=== PATIENT | male | born 1940 | race Caucasian/White ===

== ENCOUNTER 2017-08-23 17:10 | Emergency (ER) | payer MEDICARE, MEDICAID ==
[~2017-08-23] VITALS: Ht 185.4 cm; Wt 95.9 kg
[~2017-08-23 17:10] MED LIST: AMIO200T57 PO; ASPI81TA52 PO; ATOR40TA PO; CARV3.12 PO; COU1T PO; FURO-150 PO; LISI2.5T89 PO; POTA10TA10 PO
[2017-08-23 17:15] VITALS: BP 142/64
[2017-08-23] MEDS ORDERED: phytonadione 10 MG/1 ML amp PO ONE (17:50)
== END 2017-08-23 18:18 | disposition home or self-care (01) ==
LOC: ER 17:11
DX: R79.1 Abnormal coagulation profile (principal); I25.10 Atherosclerotic heart disease of native coronary artery without angina pectoris; I25.2 Old myocardial infarction; Z79.01 Long term (current) use of anticoagulants; Z95.1 Presence of aortocoronary bypass graft; Z79.82 Long term (current) use of aspirin
CPT/HCPCS: 99282; J3430

== ENCOUNTER 2017-12-19 11:43 | Inpatient (IN) | payer MEDICARE, MEDICAID ==
[~2017-12-19] VITALS: Ht 180.3 cm; Wt 114.0 kg
[2017-12-19 12:05] LABS: BASOPHILS % (AUTO) 0.4 % (0-1); EOSINOPHILS # (AUTO) 0.1 X10'3 (0-0.9); EOSINOPHILS % (AUTO) 1.6 % (0-6); HEMATOCRIT 44.1 % (42.0-52.0); LYMPHOCYTES # (AUTO) 1.2 X10'3 (1.1-4.8); LYMPHOCYTES % (AUTO) 16.8 % (21-51); MEAN CORPUSCULAR HEMOGLOBIN 31.2 PG (27.0-31.0); MEAN CORPUSCULAR HGB CONC 33.9 % (33.0-36.5); MEAN PLATELET VOLUME 9.1 FL (7.4-10.4); MONOCYTES # (AUTO) 0.6 X10'3 (0-0.9); MONOCYTES % (AUTO) 8.4 % (2-12); NEUTROPHILS # (AUTO) 5.3 X10'3 (1.8-7.7); NEUTROPHILS % (AUTO) 72.8 % (42-75); PLATELET COUNT 132 X10'3 (140-440); RED CELL DISTRIBUTION WIDTH 14.3 % (11.5-14.5); WHITE BLOOD COUNT 7.3 X10'3 (4.5-11.0)
[2017-12-19 12:16] LABS: INR 2.5 INR; PARTIAL THROMBOPLASTIN TIME 34 SECONDS (22-32); PROTHROMBIN TIME 24.7 SECONDS (9.0-12.0)
[2017-12-19 12:20] LABS: ALANINE AMINOTRANSFERASE 16 U/L (12-78); ALBUMIN 3.2 G/DL (3.4-5.0); ALBUMIN/GLOBULIN RATIO 0.9 (1.1-1.5); ALKALINE PHOSPHATASE 79 IU/L (46-116); ANION GAP 9 (8-16); ASPARTATE AMINO TRANSFERASE 17 U/L (10-37); BILIRUBIN,TOTAL 0.9 MG/DL (0.1-1.0); BLOOD UREA NITROGEN 26 MG/DL (7-18); BUN/CREATININE RATIO 22.2 (5.4-32.0); CALCIUM 8.4 MG/DL (8.5-10.1); CHLORIDE 105 MMOL/L (99-107); CREATININE 1.17 MG/DL (0.60-1.10); GLUCOSE 110 MG/DL (70-104); SODIUM 138 MMOL/L (135-145); TOTAL CARBON DIOXIDE 24.1 MMOL/L (24-32); TOTAL PROTEIN 6.9 G/DL (6.4-8.2); eGFR 61 ML/MIN
[2017-12-19 12:21] LABS: POTASSIUM 4.7 MMOL/L (3.5-5.1)
[2017-12-19] MEDS ORDERED: SPIR25TA5 PO (13:12)
[2017-12-19] MEDS ORDERED: PRIM50TA PO (13:12)
[2017-12-19] MEDS ORDERED: CARV6.253 PO (13:12)
[2017-12-19] MEDS ORDERED: HYDROcodone/acetaminophen 10/325mg tab PO PRN (14:25)
[2017-12-19] MEDS ORDERED: mag hydrox/Alum hydrox/simeth 30ml oral suspension PO PRN (14:25)
[2017-12-19] MEDS ORDERED: magnesium hydroxide 30ml (MOM) UD suspension PO PRN (14:25)
[2017-12-19] MEDS ORDERED: potassium Cl 40MEQ/NS 500ml 500 ML IV PRN ×2 (14:25)
[2017-12-19] MEDS ORDERED: HYDROcodone/acetaminophen 5mg/325mg tablet PO PRN (14:25)
[2017-12-19] MEDS ORDERED: magnesium 4gm in 100ml NS 100 ML IV PRN (14:25)
[2017-12-19] MEDS ORDERED: ondansetron/PF 4mg/2ml inj IV PRN (14:25)
[2017-12-19] MEDS ORDERED: potassium Cl 20 mEq SR tablet PO PRN ×2 (14:25)
[2017-12-19] MEDS ORDERED: magnesium Cl slow-release 64mg tablet PO PRN (14:25)
[2017-12-19] MEDS ORDERED: magnesium/D5W IVPB 50 ML IV PRN (14:25)
[2017-12-19] MEDS ORDERED: morphine 4 MG/ML inj SYRINge IV PRN ×2 (14:25)
[2017-12-19] MEDS ORDERED: acetaminophen 325mg tablet PO PRN (14:25)
[2017-12-19] MEDS ORDERED: regadenoson 0.4mg/5ml syringe IV ONE (14:30)
[2017-12-19] MEDS ORDERED: nitroGLYCERIN 0.4mg SUBLingual tab SL PRN ×2 (14:30→14:35)
[2017-12-19] MEDS ORDERED: metoprolol tartrate 1mg/ml inj IV PRN (14:30)
[2017-12-19] MEDS ORDERED: albuterol 2.5 MG/3 ML nebule NEB PRN (14:30)
[2017-12-19] MEDS ORDERED: CAFFEINE CITRATE 60 MG/3 ML injection vial IV PRN (14:30)
[2017-12-19 15:30] VITALS: BP 105/65
[2017-12-19 19:00] VITALS: BP 121/73
[2017-12-19] MEDS: furosemide 20 MG/2 ML vial IV SCH (19:26)
[2017-12-19] MEDS: docusate sod 100mg capsule PO SCH (20:52)
[2017-12-19] MEDS: primidone 50mg tablet PO SCH (20:53)
[2017-12-19] MEDS: warfarin 4mg tablet PO SCH (20:53)
[2017-12-19] MEDS: carVEDilol 3.125mg tablet PO SCH (20:54)
[2017-12-19 23:00] VITALS: BP 99/65
[2017-12-19] MEDS: Melatonin 3mg tablet PO PRN (23:35)
[2017-12-20] VITALS (13 sets, daily range): BP systolic 97–126; BP diastolic 58–98
[2017-12-20 06:09] LABS: INR 2.8 INR; PROTHROMBIN TIME 27.9 SECONDS (9.0-12.0)
[2017-12-20 06:16] LABS: ALANINE AMINOTRANSFERASE 17 U/L (12-78); ALBUMIN 3.1 G/DL (3.4-5.0); ALBUMIN/GLOBULIN RATIO 0.9 (1.1-1.5); ALKALINE PHOSPHATASE 76 IU/L (46-116); ANION GAP 9 (8-16); ASPARTATE AMINO TRANSFERASE 14 U/L (10-37); BILIRUBIN,TOTAL 0.7 MG/DL (0.1-1.0); BLOOD UREA NITROGEN 25 MG/DL (7-18); BUN/CREATININE RATIO 22.1 (5.4-32.0); CALCIUM 8.3 MG/DL (8.5-10.1); CHLORIDE 105 MMOL/L (99-107); CHOL/HDL RATIO 2.9 (0.00-4.99); CHOLESTEROL 99 MG/DL (0-200); CREATININE 1.13 MG/DL (0.60-1.10); GLUCOSE 103 MG/DL (70-104); HDL CHOLESTEROL 34 MG/DL (35-60); LDL CHOLESTEROL 55 MG/DL (50-100); MAGNESIUM 1.6 MG/DL (1.5-2.4); SODIUM 140 MMOL/L (135-145); TOTAL CARBON DIOXIDE 26.1 MMOL/L (24-32); TOTAL PROTEIN 6.5 G/DL (6.4-8.2); TRIGLYCERIDES 68 MG/DL (20-135); eGFR 63 ML/MIN
[2017-12-20] MEDS: K and/or MAG REPLACEMENT MC SCH (08:00)
[2017-12-20] MEDS: carVEDilol 3.125mg tablet PO SCH ×2 (08:00→19:34)
[2017-12-20] MEDS: lisinopril 2.5mg tablet PO SCH (08:00)
[2017-12-20] MEDS: furosemide 20 MG/2 ML vial IV SCH (08:01)
[2017-12-20] MEDS: atorvastatin 20mg tablet PO SCH (08:02)
[2017-12-20] MEDS: primidone 50mg tablet PO SCH ×3 (08:02→19:34)
[2017-12-20] MEDS: docusate sod 100mg capsule PO SCH ×2 (08:03→19:34)
[2017-12-20] MEDS: aspirin 81mg tablet.DR PO SCH (08:03)
[2017-12-20] MEDS: spironolactone 25 MG tablet PO SCH (08:05)
[2017-12-20] MEDS ORDERED: CAFFEINE CITRATE 60 MG/3 ML injection vial IV ONE (10:02)
[2017-12-20] MEDS ORDERED: regadenoson 0.4mg/5ml syringe IV ONE (10:02)
[2017-12-20] MEDS ORDERED: FURO-150 PO (14:32)
[2017-12-20] MEDS ORDERED: NITR0.4T51 SL (14:32)
[2017-12-20] MEDS: warfarin 4mg tablet PO SCH (19:34)
[2017-12-20] MEDS: Melatonin 3mg tablet PO PRN (23:20)
[2017-12-21 02:00] VITALS: BP 112/70
[2017-12-21 06:00] VITALS: BP 100/71
[2017-12-21 06:02] LABS: INR 3.2 INR; PROTHROMBIN TIME 31.5 SECONDS (9.0-12.0)
[2017-12-21 06:09] LABS: ALANINE AMINOTRANSFERASE 22 U/L (12-78); ALBUMIN 3.1 G/DL (3.4-5.0); ALBUMIN/GLOBULIN RATIO 0.9 (1.1-1.5); ALKALINE PHOSPHATASE 79 IU/L (46-116); ANION GAP 9 (8-16); ASPARTATE AMINO TRANSFERASE 14 U/L (10-37); BLOOD UREA NITROGEN 21 MG/DL (7-18); BUN/CREATININE RATIO 18.6 (5.4-32.0); CALCIUM 8.6 MG/DL (8.5-10.1); CHLORIDE 104 MMOL/L (99-107); CREATININE 1.13 MG/DL (0.60-1.10); GLUCOSE 96 MG/DL (70-104); MAGNESIUM 1.7 MG/DL (1.5-2.4); POTASSIUM 4.1 MMOL/L (3.5-5.1); SODIUM 140 MMOL/L (135-145); TOTAL CARBON DIOXIDE 26.7 MMOL/L (24-32); TOTAL PROTEIN 6.5 G/DL (6.4-8.2); eGFR 63 ML/MIN
[2017-12-21] MEDS: K and/or MAG REPLACEMENT MC SCH (08:00)
[2017-12-21] MEDS ORDERED: furosemide 20MG tablet PO SCH (08:00)
[2017-12-21] MEDS: docusate sod 100mg capsule PO SCH (08:20)
[2017-12-21] MEDS: spironolactone 25 MG tablet PO SCH (08:20)
[2017-12-21] MEDS: carVEDilol 3.125mg tablet PO SCH (08:20)
[2017-12-21] MEDS: aspirin 81mg tablet.DR PO SCH (08:20)
[2017-12-21] MEDS: atorvastatin 20mg tablet PO SCH (08:20)
[2017-12-21] MEDS: primidone 50mg tablet PO SCH (08:20)
[2017-12-21] MEDS: lisinopril 2.5mg tablet PO SCH (08:21)
== END 2017-12-21 11:20 | disposition home or self-care (01) | DRG 302 ==
LOC: ER 11:43 → ED HOLD 13:34 → EDBEDREQ 14:38 → PCU 3S 15:15
PROVIDERS: ADMIT Internal Medicine; ATTEND Internal Medicine
PROC: 4A02XM4 Measurement of Cardiac Total Activity, External Approach (ICD-10-PCS; principal; 2017-12-20)
PROC: 3E073KZ Introduction of Other Diagnostic Substance into Coronary Artery, Percutaneous Approach (ICD-10-PCS; 2017-12-20)
DX: I25.119 Atherosclerotic heart disease of native coronary artery with unspecified angina pectoris (principal); I50.23 Acute on chronic systolic (congestive) heart failure; I48.91 Unspecified atrial fibrillation; E78.5 Hyperlipidemia, unspecified; G20 Parkinson's disease; M19.90 Unspecified osteoarthritis, unspecified site; I25.5 Ischemic cardiomyopathy; Z96.642 Presence of left artificial hip joint; I25.2 Old myocardial infarction; Z95.1 Presence of aortocoronary bypass graft; Z95.810 Presence of automatic (implantable) cardiac defibrillator; Z79.899 Other long term (current) drug therapy; Z79.01 Long term (current) use of anticoagulants; Z79.82 Long term (current) use of aspirin
CPT/HCPCS: 36415; 71045; 78452; 80053; 80061; 83735; 84484; 85025; 85610; 85730; 87070; 93005; 93017; 93306; 97116; 97161; 99285; A9500; J1940

== ENCOUNTER 2017-12-24 09:11 | Emergency (ER) | payer MEDICARE, MEDICAID ==
[~2017-12-24] VITALS: Ht 180.3 cm; Wt 102.3 kg
[~2017-12-24 09:11] MED LIST changes: -AMIO200T57 PO; -CARV3.12 PO; +CARV6.253 PO; -FURO-150 PO; +NITR0.4T51 SL; -POTA10TA10 PO; +PRIM50TA PO; +SPIR25TA5 PO
[2017-12-24] MEDS ORDERED: aspirin 81mg tab.chew PO ONE (09:20)
[2017-12-24 09:58] LABS: BASOPHILS % (AUTO) 0.2 % (0-1); EOSINOPHILS # (AUTO) 0.2 X10'3 (0-0.9); EOSINOPHILS % (AUTO) 2.4 % (0-6); HEMATOCRIT 41.9 % (42.0-52.0); HEMOGLOBIN 14.1 g/dl (14.0-17.9); LYMPHOCYTES # (AUTO) 0.9 X10'3 (1.1-4.8); LYMPHOCYTES % (AUTO) 11.6 % (21-51); MEAN CORPUSCULAR HEMOGLOBIN 31.1 PG (27.0-31.0); MEAN CORPUSCULAR HGB CONC 33.7 % (33.0-36.5); MEAN CORPUSCULAR VOLUME 92.2 FL (78-98); MEAN PLATELET VOLUME 9.5 FL (7.4-10.4); MONOCYTES # (AUTO) 0.7 X10'3 (0-0.9); MONOCYTES % (AUTO) 8.7 % (2-12); NEUTROPHILS # (AUTO) 6.1 X10'3 (1.8-7.7); NEUTROPHILS % (AUTO) 77.1 % (42-75); PLATELET COUNT 135 X10'3 (140-440); RED BLOOD COUNT 4.55 X10'6 (4.70-6.10); RED CELL DISTRIBUTION WIDTH 14.5 % (11.5-14.5)
[2017-12-24 10:08] LABS: INR 1.9 INR; PARTIAL THROMBOPLASTIN TIME 33 SECONDS (22-32); PROTHROMBIN TIME 19.6 SECONDS (9.0-12.0)
[2017-12-24 10:15] LABS: ALANINE AMINOTRANSFERASE 18 U/L (12-78); ALBUMIN 3.2 G/DL (3.4-5.0); ALBUMIN/GLOBULIN RATIO 0.9 (1.1-1.5); ALKALINE PHOSPHATASE 85 IU/L (46-116); ANION GAP 6 (8-16); ASPARTATE AMINO TRANSFERASE 15 U/L (10-37); BILIRUBIN,TOTAL 0.6 MG/DL (0.1-1.0); BLOOD UREA NITROGEN 19 MG/DL (7-18); BUN/CREATININE RATIO 15.2 (5.4-32.0); CALCIUM 8.9 MG/DL (8.5-10.1); CHLORIDE 104 MMOL/L (99-107); CREATININE 1.25 MG/DL (0.60-1.10); GLUCOSE 110 MG/DL (70-104); POTASSIUM 5.2 MMOL/L (3.5-5.1); SODIUM 137 MMOL/L (135-145); TOTAL CARBON DIOXIDE 26.9 MMOL/L (24-32); TOTAL PROTEIN 6.8 G/DL (6.4-8.2); eGFR 56 ML/MIN
[2017-12-24 10:22] LABS: MAGNESIUM 1.8 MG/DL (1.5-2.4)
[2017-12-24] MEDS ORDERED: sodium polystyrene sulfonate 15gm/60ml oral suspension PO ONE (10:50)
[2017-12-24 10:55] VITALS: BP 116/80
== END 2017-12-24 15:24 | disposition home or self-care (01) ==
LOC: ER 09:11
DX: R07.9 Chest pain, unspecified (principal); E87.5 Hyperkalemia; I25.10 Atherosclerotic heart disease of native coronary artery without angina pectoris; E78.00 Pure hypercholesterolemia, unspecified; I10 Essential (primary) hypertension; I48.91 Unspecified atrial fibrillation; I25.2 Old myocardial infarction; Z95.0 Presence of cardiac pacemaker; Z95.1 Presence of aortocoronary bypass graft; Z79.82 Long term (current) use of aspirin; Z79.01 Long term (current) use of anticoagulants; Z79.899 Other long term (current) drug therapy
CPT/HCPCS: 36415; 71045; 80053; 83735; 83880; 84484; 85025; 85610; 85730; 93005; 99285

== ENCOUNTER 2018-01-01 12:44 | Emergency (ER) | payer MEDICARE, MEDICAID ==
[~2018-01-01] VITALS: Ht 180.3 cm; Wt 111.8 kg
[2018-01-01 13:06] LABS: BASOPHILS % (AUTO) 0.4 % (0-1); EOSINOPHILS # (AUTO) 0.1 X10'3 (0-0.9); EOSINOPHILS % (AUTO) 1.1 % (0-6); HEMATOCRIT 44.1 % (42.0-52.0); HEMOGLOBIN 14.8 g/dl (14.0-17.9); LYMPHOCYTES % (AUTO) 12.7 % (21-51); MEAN CORPUSCULAR HEMOGLOBIN 30.7 PG (27.0-31.0); MEAN CORPUSCULAR HGB CONC 33.4 % (33.0-36.5); MEAN PLATELET VOLUME 8.7 FL (7.4-10.4); MONOCYTES # (AUTO) 0.7 X10'3 (0-0.9); MONOCYTES % (AUTO) 8.9 % (2-12); NEUTROPHILS # (AUTO) 6.1 X10'3 (1.8-7.7); NEUTROPHILS % (AUTO) 76.9 % (42-75); PLATELET COUNT 149 X10'3 (140-440); RED CELL DISTRIBUTION WIDTH 14.3 % (11.5-14.5); WHITE BLOOD COUNT 7.9 X10'3 (4.5-11.0)
[2018-01-01 13:21] LABS: ALANINE AMINOTRANSFERASE 18 U/L (12-78); ALBUMIN 3.4 G/DL (3.4-5.0); ALBUMIN/GLOBULIN RATIO 0.9 (1.1-1.5); ALKALINE PHOSPHATASE 81 IU/L (46-116); ANION GAP 9 (8-16); ASPARTATE AMINO TRANSFERASE 14 U/L (10-37); BILIRUBIN,TOTAL 0.7 MG/DL (0.1-1.0); BLOOD UREA NITROGEN 23 MG/DL (7-18); BUN/CREATININE RATIO 20.2 (5.4-32.0); CALCIUM 8.8 MG/DL (8.5-10.1); CHLORIDE 105 MMOL/L (99-107); CREATININE 1.14 MG/DL (0.60-1.10); GLUCOSE 106 MG/DL (70-104); POTASSIUM 4.3 MMOL/L (3.5-5.1); SODIUM 141 MMOL/L (135-145); TOTAL CARBON DIOXIDE 27.4 MMOL/L (24-32); TOTAL PROTEIN 7.1 G/DL (6.4-8.2); eGFR 63 ML/MIN
[2018-01-01 13:57] LABS: INR 2.5 INR; PROTHROMBIN TIME 24.8 SECONDS (9.0-12.0)
[2018-01-01 14:06] LABS: PARTIAL THROMBOPLASTIN TIME 34 SECONDS (22-32)
[2018-01-01] MEDS ORDERED: furosemide 10 MG/1 ML 10ml inj IV ONE (14:40)
[2018-01-01] MEDS ORDERED: furosemide 20MG tablet PO ONE (15:05)
[2018-01-01 15:16] VITALS: BP 133/93
== END 2018-01-01 15:18 | disposition home or self-care (01) ==
LOC: ER 12:45
DX: I11.0 Hypertensive heart disease with heart failure (principal); I50.22 Chronic systolic (congestive) heart failure; R06.03 Acute respiratory distress; I25.10 Atherosclerotic heart disease of native coronary artery without angina pectoris; I48.91 Unspecified atrial fibrillation; E78.00 Pure hypercholesterolemia, unspecified; I25.2 Old myocardial infarction; Z95.0 Presence of cardiac pacemaker; Z95.1 Presence of aortocoronary bypass graft; Z79.01 Long term (current) use of anticoagulants; Z79.82 Long term (current) use of aspirin; Z79.899 Other long term (current) drug therapy
CPT/HCPCS: 36415; 71045; 80053; 83880; 84484; 85025; 85610; 85730; 93005; 99285

== ENCOUNTER 2018-03-12 20:54 | Emergency (ER) | payer MEDICARE, MEDICAID ==
[~2018-03-12] VITALS: Ht 180.3 cm; Wt 99.0 kg
[2018-03-12 21:03] VITALS: BP 125/80
[2018-03-12 22:28] LABS: CLARITY,URINE SLIGHTLY CLOUDY (Clear); COLOR,URINE YELLOW (Yellow); GLUCOSE, URINE NEGATIVE (Neg); KETONES,URINE NEGATIVE (Neg); LEUKOCYTE ESTERASE ,URINE SMALL (Neg); NITRITES, URINE POSITIVE (Neg); OCCULT BLOOD,URINE TRACE-INTACT (Neg); PROTEIN,URINE 30 mg/dl (Neg); UROBILINOGEN,URINE 0.2 E.U/dL (0.2-1.0)
[2018-03-12 22:42] LABS: UA COLLECTION TYPE CLN CATCH MIDSTREAM
[2018-03-12 22:44] LABS: BACTERIA,URINE 3+ /HPF (Neg); WBC,URINE 50-100 /HPF (0-4)
[2018-03-12] MEDS ORDERED: CIPR-259 PO (22:44)
[2018-03-12 22:45] LABS: AMORPHOUS URATES 2+; SQUAMOUS EPITHELIAL CELL,UR FEW /LPF (FEW); WBC CLUMPS,URINE FEW /HPF (NEGATIVE)
== END 2018-03-12 23:15 | disposition home or self-care (01) ==
LOC: ER 20:54
DX: N30.00 Acute cystitis without hematuria (principal); I48.91 Unspecified atrial fibrillation; I25.10 Atherosclerotic heart disease of native coronary artery without angina pectoris; E78.00 Pure hypercholesterolemia, unspecified; I10 Essential (primary) hypertension; I25.2 Old myocardial infarction; Z95.1 Presence of aortocoronary bypass graft; Z95.0 Presence of cardiac pacemaker; Z79.82 Long term (current) use of aspirin; Z79.2 Long term (current) use of antibiotics; Z79.899 Other long term (current) drug therapy
CPT/HCPCS: 81001; 87088; 99284

== ENCOUNTER 2018-04-03 20:16 | Inpatient (IN) | payer MEDICARE, MEDICAID ==
[~2018-04-03] VITALS: Ht 177.8 cm; Wt 102.1 kg
[2018-04-03 20:48] LABS: BASOPHILS # (AUTO) 0.1 X10'3 (0-0.2); BASOPHILS % (AUTO) 1.9 % (0-1); EOSINOPHILS # (AUTO) 0.1 X10'3 (0-0.9); EOSINOPHILS % (AUTO) 0.9 % (0-6); HEMATOCRIT 44.9 % (42.0-52.0); HEMOGLOBIN 14.7 g/dl (14.0-17.9); LYMPHOCYTES # (AUTO) 0.8 X10'3 (1.1-4.8); LYMPHOCYTES % (AUTO) 11.4 % (21-51); MEAN CORPUSCULAR HEMOGLOBIN 30.4 PG (27.0-31.0); MEAN CORPUSCULAR HGB CONC 32.7 % (33.0-36.5); MEAN PLATELET VOLUME 9.7 FL (7.4-10.4); MONOCYTES # (AUTO) 0.6 X10'3 (0-0.9); MONOCYTES % (AUTO) 8.3 % (2-12); NEUTROPHILS # (AUTO) 5.6 X10'3 (1.8-7.7); NEUTROPHILS % (AUTO) 77.5 % (42-75); PLATELET COUNT 143 X10'3 (140-440); RED BLOOD COUNT 4.83 X10'6 (4.70-6.10); RED CELL DISTRIBUTION WIDTH 16.3 % (11.5-14.5); WHITE BLOOD COUNT 7.2 X10'3 (4.5-11.0)
[2018-04-03 20:56] LABS: ALANINE AMINOTRANSFERASE 40 U/L (12-78); ALBUMIN 3.2 G/DL (3.4-5.0); ALBUMIN/GLOBULIN RATIO 0.9 (1.1-1.5); ALKALINE PHOSPHATASE 95 IU/L (46-116); ANION GAP 10 (8-16); ASPARTATE AMINO TRANSFERASE 31 U/L (10-37); BILIRUBIN,TOTAL 0.9 MG/DL (0.1-1.0); BLOOD UREA NITROGEN 27 MG/DL (7-18); BUN/CREATININE RATIO 20.3 (5.4-32.0); CALCIUM 8.4 MG/DL (8.5-10.1); CHLORIDE 103 MMOL/L (99-107); CREATININE 1.33 MG/DL (0.60-1.10); GLUCOSE 114 MG/DL (70-104); POTASSIUM 4.9 MMOL/L (3.5-5.1); SODIUM 138 MMOL/L (135-145); TOTAL PROTEIN 6.7 G/DL (6.4-8.2); eGFR 52 ML/MIN
[2018-04-03 21:15] LABS: ANISOCYTOSIS 1+; PLATELET ESTIMATE NORMAL
[2018-04-03 21:16] LABS: BURR CELLS FEW; ELLIPTOCYTES FEW; INR 3.7 INR; PARTIAL THROMBOPLASTIN TIME 34 SECONDS (22-32); POLYCHROMASIA FEW
[2018-04-03 21:17] LABS: PROTHROMBIN TIME 36.5 SECONDS (9.0-12.0)
[2018-04-03 21:53] LABS: D-DIMER 5.49 MG/L FEU (0-0.50)
[2018-04-03] MEDS ORDERED: iohexol 300mg/ml 100ml inj. ONE (22:11)
[2018-04-03] MEDS ORDERED: normal saline 1000ml 1,000 ML IV ONE (22:15)
[2018-04-03] MEDS ORDERED: furosemide 10 MG/1 ML 10ml inj IV ONE ×2 (22:15→22:50)
[2018-04-03] MEDS ORDERED: ondansetron/PF 4mg/2ml inj IV PRN (23:55)
[2018-04-03] MEDS ORDERED: mag hydrox/Alum hydrox/simeth 30ml oral suspension PO PRN (23:55)
[2018-04-03] MEDS ORDERED: magnesium hydroxide 30ml (MOM) UD suspension PO PRN (23:55)
[2018-04-03] MEDS ORDERED: acetaminophen 325mg tablet PO PRN (23:55)
[2018-04-04] VITALS (7 sets, daily range): BP systolic 91–119; BP diastolic 58–71
[2018-04-04] MEDS: tamsulosin 0.4mg capsule PO SCH ×3 (02:18→21:39)
[2018-04-04 05:34] LABS: BASOPHILS % (AUTO) 0.6 % (0-1); EOSINOPHILS % (AUTO) 0.5 % (0-6); HEMATOCRIT 41.9 % (42.0-52.0); HEMOGLOBIN 13.9 g/dl (14.0-17.9); LYMPHOCYTES # (AUTO) 0.9 X10'3 (1.1-4.8); LYMPHOCYTES % (AUTO) 11.1 % (21-51); MEAN CORPUSCULAR HEMOGLOBIN 30.5 PG (27.0-31.0); MEAN CORPUSCULAR HGB CONC 33.2 % (33.0-36.5); MEAN CORPUSCULAR VOLUME 91.8 FL (78-98); MEAN PLATELET VOLUME 10.1 FL (7.4-10.4); MONOCYTES # (AUTO) 0.7 X10'3 (0-0.9); MONOCYTES % (AUTO) 8.3 % (2-12); NEUTROPHILS # (AUTO) 6.5 X10'3 (1.8-7.7); NEUTROPHILS % (AUTO) 79.5 % (42-75); PLATELET COUNT 125 X10'3 (140-440); RED BLOOD COUNT 4.57 X10'6 (4.70-6.10); RED CELL DISTRIBUTION WIDTH 16.1 % (11.5-14.5); WHITE BLOOD COUNT 8.1 X10'3 (4.5-11.0)
[2018-04-04 05:40] LABS: INR 3.2 INR; PROTHROMBIN TIME 32.1 SECONDS (9.0-12.0)
[2018-04-04 05:50] LABS: ALANINE AMINOTRANSFERASE 36 U/L (12-78); ALBUMIN/GLOBULIN RATIO 0.9 (1.1-1.5); ALKALINE PHOSPHATASE 80 IU/L (46-116); ANION GAP 9 (8-16); ASPARTATE AMINO TRANSFERASE 31 U/L (10-37); BILIRUBIN,TOTAL 1.1 MG/DL (0.1-1.0); BLOOD UREA NITROGEN 26 MG/DL (7-18); BUN/CREATININE RATIO 19.1 (5.4-32.0); CALCIUM 8.6 MG/DL (8.5-10.1); CHLORIDE 103 MMOL/L (99-107); CREATININE 1.36 MG/DL (0.60-1.10); GLUCOSE 86 MG/DL (70-104); POTASSIUM 4.3 MMOL/L (3.5-5.1); SODIUM 139 MMOL/L (135-145); TOTAL CARBON DIOXIDE 27.1 MMOL/L (24-32); TOTAL PROTEIN 6.3 G/DL (6.4-8.2); eGFR 51 ML/MIN
[2018-04-04] MEDS: lisinopril 2.5mg tablet PO SCH (08:00)
[2018-04-04] MEDS: aspirin 81mg tablet.DR PO SCH (08:01)
[2018-04-04] MEDS: atorvastatin 20mg tablet PO SCH (08:01)
[2018-04-04] MEDS: carvedilol 6.25mg tablet PO SCH ×2 (08:01→20:00)
[2018-04-04] MEDS: furosemide 20 MG/2 ML vial IV SCH (20:00)
[2018-04-04] MEDS ORDERED: warfarin 4mg tablet PO ONE (21:00)
[2018-04-04] MEDS ORDERED: warfarin 1mg tablet PO SCH (21:00)
[2018-04-04] MEDS: diatr meglu/diatrizoate 30ml oral sol.-(3 dose) bottle PO SCH (21:38)
[2018-04-04] MEDS: enoxaparin 100mg/ml syringe SUBCUT SCH (22:25)
[2018-04-05] VITALS (9 sets, daily range): BP systolic 79–121; BP diastolic 46–80
[2018-04-05] MEDS ORDERED: normal saline 1000ml 1,000 ML IV SCH (00:35)
[2018-04-05] MEDS ORDERED: normal saline 1000ml 1,000 ML IV ONE (00:50)
[2018-04-05 04:25] LABS: BASOPHILS # (AUTO) 0.1 X10'3 (0-0.2); BASOPHILS % (AUTO) 1.4 % (0-1); EOSINOPHILS # (AUTO) 0.1 X10'3 (0-0.9); EOSINOPHILS % (AUTO) 1.5 % (0-6); HEMATOCRIT 40.8 % (42.0-52.0); HEMOGLOBIN 13.4 g/dl (14.0-17.9); LYMPHOCYTES # (AUTO) 0.9 X10'3 (1.1-4.8); LYMPHOCYTES % (AUTO) 13.9 % (21-51); MEAN CORPUSCULAR HEMOGLOBIN 30.3 PG (27.0-31.0); MEAN CORPUSCULAR HGB CONC 32.9 % (33.0-36.5); MEAN CORPUSCULAR VOLUME 91.9 FL (78-98); MEAN PLATELET VOLUME 9.5 FL (7.4-10.4); MONOCYTES # (AUTO) 0.5 X10'3 (0-0.9); MONOCYTES % (AUTO) 7.9 % (2-12); NEUTROPHILS # (AUTO) 4.6 X10'3 (1.8-7.7); NEUTROPHILS % (AUTO) 75.3 % (42-75); PLATELET COUNT 116 X10'3 (140-440); RED BLOOD COUNT 4.44 X10'6 (4.70-6.10); RED CELL DISTRIBUTION WIDTH 15.9 % (11.5-14.5); WHITE BLOOD COUNT 6.2 X10'3 (4.5-11.0)
[2018-04-05 04:38] LABS: ALANINE AMINOTRANSFERASE 36 U/L (12-78); ALBUMIN 2.8 G/DL (3.4-5.0); ALBUMIN/GLOBULIN RATIO 0.8 (1.1-1.5); ALKALINE PHOSPHATASE 91 IU/L (46-116); ANION GAP 10 (8-16); ASPARTATE AMINO TRANSFERASE 27 U/L (10-37); BLOOD UREA NITROGEN 26 MG/DL (7-18); CALCIUM 8.2 MG/DL (8.5-10.1); CHLORIDE 103 MMOL/L (99-107); CREATININE 1.18 MG/DL (0.60-1.10); GLUCOSE 112 MG/DL (70-104); POTASSIUM 3.8 MMOL/L (3.5-5.1); SODIUM 138 MMOL/L (135-145); TOTAL CARBON DIOXIDE 25.1 MMOL/L (24-32); TOTAL PROTEIN 6.1 G/DL (6.4-8.2); eGFR 60 ML/MIN
[2018-04-05 04:43] LABS: PROTHROMBIN TIME 29.7 SECONDS (9.0-12.0)
[2018-04-05] MEDS: aspirin 81mg tablet.DR PO SCH (07:09)
[2018-04-05] MEDS: tamsulosin 0.4mg capsule PO SCH ×2 (07:09→20:11)
[2018-04-05] MEDS: diatr meglu/diatrizoate 30ml oral sol.-(3 dose) bottle PO SCH ×2 (07:09→09:01)
[2018-04-05] MEDS: atorvastatin 20mg tablet PO SCH (07:09)
[2018-04-05] MEDS: carvedilol 6.25mg tablet PO SCH ×2 (08:00→20:00)
[2018-04-05] MEDS: lisinopril 2.5mg tablet PO SCH (08:00)
[2018-04-05] MEDS: enoxaparin 100mg/ml syringe SUBCUT SCH ×2 (08:00→20:11)
[2018-04-05] MEDS: furosemide 20 MG/2 ML vial IV SCH ×2 (08:00→20:00)
[2018-04-06 02:00] VITALS: BP 98/65
[2018-04-06 06:16] LABS: BASOPHILS % (AUTO) 0.5 % (0-1); EOSINOPHILS # (AUTO) 0.1 X10'3 (0-0.9); EOSINOPHILS % (AUTO) 1.9 % (0-6); HEMOGLOBIN 13.9 g/dl (14.0-17.9); LYMPHOCYTES # (AUTO) 0.7 X10'3 (1.1-4.8); LYMPHOCYTES % (AUTO) 12.2 % (21-51); MEAN CORPUSCULAR HEMOGLOBIN 30.7 PG (27.0-31.0); MEAN CORPUSCULAR HGB CONC 33.2 % (33.0-36.5); MEAN CORPUSCULAR VOLUME 92.6 FL (78-98); MEAN PLATELET VOLUME 9.9 FL (7.4-10.4); MONOCYTES # (AUTO) 0.4 X10'3 (0-0.9); MONOCYTES % (AUTO) 5.9 % (2-12); NEUTROPHILS # (AUTO) 4.8 X10'3 (1.8-7.7); NEUTROPHILS % (AUTO) 79.5 % (42-75); PLATELET COUNT 124 X10'3 (140-440); RED BLOOD COUNT 4.53 X10'6 (4.70-6.10); RED CELL DISTRIBUTION WIDTH 16.5 % (11.5-14.5)
[2018-04-06 07:00] VITALS: BP 105/72
[2018-04-06 07:00] LABS: ALANINE AMINOTRANSFERASE 35 U/L (12-78); ALBUMIN 2.8 G/DL (3.4-5.0); ALBUMIN/GLOBULIN RATIO 0.8 (1.1-1.5); ALKALINE PHOSPHATASE 102 IU/L (46-116); ANION GAP 9 (8-16); ASPARTATE AMINO TRANSFERASE 25 U/L (10-37); BILIRUBIN,TOTAL 1.1 MG/DL (0.1-1.0); BLOOD UREA NITROGEN 26 MG/DL (7-18); BUN/CREATININE RATIO 21.7 (5.4-32.0); CALCIUM 8.4 MG/DL (8.5-10.1); CHLORIDE 103 MMOL/L (99-107); GLUCOSE 99 MG/DL (70-104); SODIUM 140 MMOL/L (135-145); TOTAL CARBON DIOXIDE 28.2 MMOL/L (24-32); TOTAL PROTEIN 6.3 G/DL (6.4-8.2); eGFR 59 ML/MIN
[2018-04-06 07:06] LABS: PROTHROMBIN TIME 20.5 SECONDS (9.0-12.0)
[2018-04-06] MEDS: furosemide 20 MG/2 ML vial IV SCH ×2 (08:00→20:00)
[2018-04-06] MEDS: NYSTATIN CREAM - 30GM TUBE TP SCH ×2 (08:00→20:46)
[2018-04-06] MEDS: nystatin 15 GM powder TP SCH ×3 (08:00→20:46)
[2018-04-06] MEDS: lisinopril 2.5mg tablet PO SCH (08:00)
[2018-04-06] MEDS: atorvastatin 20mg tablet PO SCH (08:54)
[2018-04-06] MEDS: aspirin 81mg tablet.DR PO SCH (08:54)
[2018-04-06] MEDS: tamsulosin 0.4mg capsule PO SCH ×2 (08:55→20:44)
[2018-04-06] MEDS: enoxaparin 100mg/ml syringe SUBCUT SCH ×2 (08:56→20:44)
[2018-04-06] MEDS: carvedilol 6.25mg tablet PO SCH ×2 (09:13→20:44)
[2018-04-06 11:00] VITALS: BP 98/66
[2018-04-06 15:00] VITALS: BP 102/66
[2018-04-06 19:00] VITALS: BP 100/53
[2018-04-06 23:00] VITALS: BP 94/58
[2018-04-07] MEDS ORDERED: Melatonin 3mg tablet PO PRN (01:50)
[2018-04-07] MEDS: temazepam 15mg capsule PO PRN ×2 (02:28→20:13)
[2018-04-07 03:00] VITALS: BP 100/68
[2018-04-07 04:56] LABS: BASOPHILS % (AUTO) 0.1 % (0-1); EOSINOPHILS # (AUTO) 0.2 X10'3 (0-0.9); HEMATOCRIT 40.5 % (42.0-52.0); HEMOGLOBIN 13.1 g/dl (14.0-17.9); LYMPHOCYTES # (AUTO) 0.7 X10'3 (1.1-4.8); LYMPHOCYTES % (AUTO) 11.6 % (21-51); MEAN CORPUSCULAR HEMOGLOBIN 29.9 PG (27.0-31.0); MEAN CORPUSCULAR HGB CONC 32.2 % (33.0-36.5); MEAN CORPUSCULAR VOLUME 92.7 FL (78-98); MEAN PLATELET VOLUME 9.4 FL (7.4-10.4); MONOCYTES # (AUTO) 0.5 X10'3 (0-0.9); MONOCYTES % (AUTO) 8.6 % (2-12); NEUTROPHILS # (AUTO) 4.5 X10'3 (1.8-7.7); NEUTROPHILS % (AUTO) 76.7 % (42-75); PLATELET COUNT 122 X10'3 (140-440); RED BLOOD COUNT 4.37 X10'6 (4.70-6.10); WHITE BLOOD COUNT 5.9 X10'3 (4.5-11.0)
[2018-04-07 05:20] LABS: INR 1.7 INR; PROTHROMBIN TIME 17.3 SECONDS (9.0-12.0)
[2018-04-07 05:23] LABS: ALANINE AMINOTRANSFERASE 27 U/L (12-78); ALBUMIN 2.7 G/DL (3.4-5.0); ALBUMIN/GLOBULIN RATIO 0.8 (1.1-1.5); ALKALINE PHOSPHATASE 93 IU/L (46-116); ANION GAP 5 (8-16); ASPARTATE AMINO TRANSFERASE 17 U/L (10-37); BILIRUBIN,TOTAL 0.8 MG/DL (0.1-1.0); BLOOD UREA NITROGEN 18 MG/DL (7-18); BUN/CREATININE RATIO 16.1 (5.4-32.0); CALCIUM 8.3 MG/DL (8.5-10.1); CHLORIDE 103 MMOL/L (99-107); CREATININE 1.12 MG/DL (0.60-1.10); GLUCOSE 110 MG/DL (70-104); POTASSIUM 3.9 MMOL/L (3.5-5.1); SODIUM 138 MMOL/L (135-145); eGFR 64 ML/MIN
[2018-04-07 07:10] VITALS: BP 111/80
[2018-04-07] MEDS: lisinopril 2.5mg tablet PO SCH (08:00)
[2018-04-07] MEDS: aspirin 81mg tablet.DR PO SCH (08:00)
[2018-04-07] MEDS: furosemide 20 MG/2 ML vial IV SCH ×2 (08:00→20:00)
[2018-04-07] MEDS: NYSTATIN CREAM - 30GM TUBE TP SCH ×2 (08:00→20:09)
[2018-04-07] MEDS: enoxaparin 100mg/ml syringe SUBCUT SCH ×2 (08:00→20:00)
[2018-04-07] MEDS: tamsulosin 0.4mg capsule PO SCH ×2 (08:14→20:03)
[2018-04-07] MEDS: atorvastatin 20mg tablet PO SCH (08:15)
[2018-04-07] MEDS: carvedilol 6.25mg tablet PO SCH ×2 (08:15→20:00)
[2018-04-07] MEDS: nystatin 15 GM powder TP SCH ×3 (08:18→20:10)
[2018-04-07 10:45] LABS: BASOPHILS % (AUTO) 0.3 % (0-1); EOSINOPHILS # (AUTO) 0.2 X10'3 (0-0.9); EOSINOPHILS % (AUTO) 2.8 % (0-6); HEMOGLOBIN 13.7 g/dl (14.0-17.9); LYMPHOCYTES # (AUTO) 0.6 X10'3 (1.1-4.8); LYMPHOCYTES % (AUTO) 10.6 % (21-51); MEAN CORPUSCULAR HEMOGLOBIN 29.5 PG (27.0-31.0); MEAN CORPUSCULAR HGB CONC 31.8 % (33.0-36.5); MEAN CORPUSCULAR VOLUME 92.7 FL (78-98); MEAN PLATELET VOLUME 9.1 FL (7.4-10.4); MONOCYTES # (AUTO) 0.4 X10'3 (0-0.9); NEUTROPHILS # (AUTO) 4.5 X10'3 (1.8-7.7); NEUTROPHILS % (AUTO) 79.3 % (42-75); PLATELET COUNT 132 X10'3 (140-440); RED BLOOD COUNT 4.63 X10'6 (4.70-6.10); RED CELL DISTRIBUTION WIDTH 17.5 % (11.5-14.5); WHITE BLOOD COUNT 5.6 X10'3 (4.5-11.0)
[2018-04-07 15:00] VITALS: BP 102/68
[2018-04-07 19:00] VITALS: BP 84/49
[2018-04-07 20:00] VITALS: BP_SYST 104; BP_SYST 82; BP_DIAS 49; BP_DIAS 66
[2018-04-07 23:00] VITALS: BP 94/65
[2018-04-08] VITALS (7 sets, daily range): BP systolic 96–107; BP diastolic 55–72
[2018-04-08 05:12] LABS: BASOPHILS % (AUTO) 0.2 % (0-1); EOSINOPHILS # (AUTO) 0.2 X10'3 (0-0.9); EOSINOPHILS % (AUTO) 3.4 % (0-6); HEMATOCRIT 40.5 % (42.0-52.0); HEMOGLOBIN 12.9 g/dl (14.0-17.9); LYMPHOCYTES # (AUTO) 0.8 X10'3 (1.1-4.8); LYMPHOCYTES % (AUTO) 12.3 % (21-51); MEAN CORPUSCULAR HEMOGLOBIN 29.7 PG (27.0-31.0); MEAN CORPUSCULAR VOLUME 92.7 FL (78-98); MEAN PLATELET VOLUME 9.5 FL (7.4-10.4); MONOCYTES # (AUTO) 0.6 X10'3 (0-0.9); NEUTROPHILS # (AUTO) 4.8 X10'3 (1.8-7.7); NEUTROPHILS % (AUTO) 75.1 % (42-75); PLATELET COUNT 133 X10'3 (140-440); RED BLOOD COUNT 4.36 X10'6 (4.70-6.10); RED CELL DISTRIBUTION WIDTH 17.2 % (11.5-14.5); WHITE BLOOD COUNT 6.4 X10'3 (4.5-11.0)
[2018-04-08 05:29] LABS: ALANINE AMINOTRANSFERASE 31 U/L (12-78); ALBUMIN 2.7 G/DL (3.4-5.0); ALBUMIN/GLOBULIN RATIO 0.8 (1.1-1.5); ALKALINE PHOSPHATASE 92 IU/L (46-116); ANION GAP 5 (8-16); ASPARTATE AMINO TRANSFERASE 20 U/L (10-37); BILIRUBIN,TOTAL 0.8 MG/DL (0.1-1.0); BLOOD UREA NITROGEN 16 MG/DL (7-18); BUN/CREATININE RATIO 14.3 (5.4-32.0); CALCIUM 8.1 MG/DL (8.5-10.1); CHLORIDE 103 MMOL/L (99-107); CREATININE 1.12 MG/DL (0.60-1.10); GLUCOSE 135 MG/DL (70-104); POTASSIUM 4.2 MMOL/L (3.5-5.1); SODIUM 140 MMOL/L (135-145); TOTAL CARBON DIOXIDE 31.7 MMOL/L (24-32); TOTAL PROTEIN 6.1 G/DL (6.4-8.2); eGFR 64 ML/MIN
[2018-04-08 05:57] LABS: INR 1.4 INR; PROTHROMBIN TIME 14.7 SECONDS (9.0-12.0)
[2018-04-08] MEDS: furosemide 20 MG/2 ML vial IV SCH ×2 (08:00→21:20)
[2018-04-08] MEDS: atorvastatin 20mg tablet PO SCH (08:00)
[2018-04-08] MEDS: nystatin 15 GM powder TP SCH ×3 (08:00→21:23)
[2018-04-08] MEDS: carvedilol 6.25mg tablet PO SCH ×2 (08:00→21:19)
[2018-04-08] MEDS: enoxaparin 100mg/ml syringe SUBCUT SCH ×2 (08:00→20:00)
[2018-04-08] MEDS: lisinopril 2.5mg tablet PO SCH (08:00)
[2018-04-08] MEDS: tamsulosin 0.4mg capsule PO SCH ×2 (08:00→21:18)
[2018-04-08] MEDS: aspirin 81mg tablet.DR PO SCH (08:00)
[2018-04-08] MEDS: NYSTATIN CREAM - 30GM TUBE TP SCH ×2 (08:22→20:00)
[2018-04-08] MEDS: temazepam 15mg capsule PO PRN (21:19)
[2018-04-09 03:00] VITALS: BP 102/56
[2018-04-09 05:24] LABS: ANTITHROMBIN ACTIVITY 81 % (75-135); ANTITHROMBIN ANTIGEN 67 % (72-124)
[2018-04-09 06:00] VITALS: BP 96/65
[2018-04-09] MEDS: carvedilol 6.25mg tablet PO SCH (07:23)
[2018-04-09] MEDS: lisinopril 2.5mg tablet PO SCH (07:23)
[2018-04-09] MEDS: furosemide 20 MG/2 ML vial IV SCH (07:23)
[2018-04-09] MEDS: enoxaparin 100mg/ml syringe SUBCUT SCH (07:24)
[2018-04-09] MEDS: tamsulosin 0.4mg capsule PO SCH (07:24)
[2018-04-09] MEDS: atorvastatin 20mg tablet PO SCH (07:24)
[2018-04-09] MEDS: nystatin 15 GM powder TP SCH ×2 (07:32→13:30)
[2018-04-09] MEDS: NYSTATIN CREAM - 30GM TUBE TP SCH (07:32)
[2018-04-09 11:00] VITALS: BP 92/61
[2018-04-09] MEDS ORDERED: ENOX100S3 SQ (14:22)
[2018-04-09 15:00] VITALS: BP 102/75
[2018-04-09] MEDS ORDERED: FURO40TA4 PO (17:05)
== END 2018-04-09 17:30 | disposition home health service (06) | DRG 175 ==
LOC: ER 20:16 → ED HOLD 23:54 → PCU 3S 04-04 00:56
PROVIDERS: ADMIT Internal Medicine; ATTEND Family Medicine
PROC: B32T1ZZ Computerized Tomography (CT Scan) of Left Pulmonary Artery using Low Osmolar Contrast (ICD-10-PCS; 2018-04-03)
PROC: B3201ZZ Computerized Tomography (CT Scan) of Thoracic Aorta using Low Osmolar Contrast (ICD-10-PCS; 2018-04-03)
PROC: B32S1ZZ Computerized Tomography (CT Scan) of Right Pulmonary Artery using Low Osmolar Contrast (ICD-10-PCS; 2018-04-03)
PROC: 3E02340 Introduction of Influenza Vaccine into Muscle, Percutaneous Approach (ICD-10-PCS; principal; 2018-04-04)
DX: I26.99 Other pulmonary embolism without acute cor pulmonale (principal); I50.23 Acute on chronic systolic (congestive) heart failure; I82.403 Acute embolism and thrombosis of unspecified deep veins of lower extremity, bilateral; D68.32 Hemorrhagic disorder due to extrinsic circulating anticoagulants; I11.0 Hypertensive heart disease with heart failure; E78.00 Pure hypercholesterolemia, unspecified; Y92.238 Other place in hospital as the place of occurrence of the external cause; T45.515A Adverse effect of anticoagulants, initial encounter; R31.9 Hematuria, unspecified; I25.119 Atherosclerotic heart disease of native coronary artery with unspecified angina pectoris; I48.91 Unspecified atrial fibrillation; I25.2 Old myocardial infarction; Z23 Encounter for immunization; Z95.0 Presence of cardiac pacemaker; Z95.1 Presence of aortocoronary bypass graft; Z79.82 Long term (current) use of aspirin; Z79.01 Long term (current) use of anticoagulants; Z79.899 Other long term (current) drug therapy; Z82.49 Family history of ischemic heart disease and other diseases of the circulatory system
CPT/HCPCS: 36415; 71045; 71275; 74176; 80053; 81479; 83880; 83891; 83894; 83898; 85025; 85240; 85300; 85301; 85379; 85610; 85730; 86146; 86147; 87070; 93005; 93306; 93970; 94760; 96374; 96376; 97110; 97116; 97162; 99285; A4620; G0378; J1650; J1940; J2405; J7030; Q9963; Q9967

== ENCOUNTER 2018-04-10 22:02 | Emergency (ER) | payer MEDICARE, MEDICAID ==
[~2018-04-10] VITALS: Ht 180.3 cm; Wt 108.6 kg
[~2018-04-10 22:02] MED LIST changes: -COU1T PO; +ENOX100S3 SQ; +FURO40TA4 PO; -PRIM50TA PO
[2018-04-10 23:10] LABS: BASOPHILS % (AUTO) 0.3 % (0-1); EOSINOPHILS # (AUTO) 0.1 X10'3 (0-0.9); EOSINOPHILS % (AUTO) 1.5 % (0-6); HEMATOCRIT 41.5 % (42.0-52.0); HEMOGLOBIN 13.1 g/dl (14.0-17.9); LYMPHOCYTES # (AUTO) 1.1 X10'3 (1.1-4.8); LYMPHOCYTES % (AUTO) 14.4 % (21-51); MEAN CORPUSCULAR HEMOGLOBIN 29.4 PG (27.0-31.0); MEAN CORPUSCULAR HGB CONC 31.6 % (33.0-36.5); MEAN PLATELET VOLUME 9.1 FL (7.4-10.4); MONOCYTES # (AUTO) 0.9 X10'3 (0-0.9); MONOCYTES % (AUTO) 11.5 % (2-12); NEUTROPHILS # (AUTO) 5.4 X10'3 (1.8-7.7); NEUTROPHILS % (AUTO) 72.3 % (42-75); PLATELET COUNT 162 X10'3 (140-440); RED BLOOD COUNT 4.46 X10'6 (4.70-6.10); RED CELL DISTRIBUTION WIDTH 17.6 % (11.5-14.5); WHITE BLOOD COUNT 7.4 X10'3 (4.5-11.0)
[2018-04-10 23:19] LABS: ALANINE AMINOTRANSFERASE 36 U/L (12-78); ALBUMIN 2.9 G/DL (3.4-5.0); ALBUMIN/GLOBULIN RATIO 0.8 (1.1-1.5); ALKALINE PHOSPHATASE 93 IU/L (46-116); ANION GAP 10 (8-16); ASPARTATE AMINO TRANSFERASE 24 U/L (10-37); BILIRUBIN,TOTAL 0.8 MG/DL (0.1-1.0); BLOOD UREA NITROGEN 18 MG/DL (7-18); BUN/CREATININE RATIO 16.4 (5.4-32.0); CALCIUM 8.6 MG/DL (8.5-10.1); CHLORIDE 104 MMOL/L (99-107); GLUCOSE 92 MG/DL (70-104); POTASSIUM 3.9 MMOL/L (3.5-5.1); SODIUM 142 MMOL/L (135-145); TOTAL CARBON DIOXIDE 28.4 MMOL/L (24-32); TOTAL PROTEIN 6.7 G/DL (6.4-8.2); eGFR 65 ML/MIN
[2018-04-10 23:33] LABS: INR 1.2 INR; PARTIAL THROMBOPLASTIN TIME 31 SECONDS (22-32); PROTHROMBIN TIME 12.7 SECONDS (9.0-12.0)
[2018-04-11 00:19] VITALS: BP 114/62
[2018-04-11] MEDS ORDERED: acetaminophen 325mg tablet PO ONE (00:20)
[2018-04-11] MEDS ORDERED: ondansetron/PF 4mg/2ml inj IV ONE (00:20)
[2018-04-11 00:29] LABS: CLARITY,URINE CLOUDY (Clear); COLOR,URINE RED (Yellow); GLUCOSE, URINE NEGATIVE (Neg); KETONES,URINE TRACE mg/dl (Neg); LEUKOCYTE ESTERASE ,URINE TRACE (Neg); NITRITES, URINE POSITIVE (Neg); OCCULT BLOOD,URINE LARGE (Neg); PROTEIN,URINE 100 mg/dl (Neg)
[2018-04-11 00:36] LABS: UA COLLECTION TYPE FOLEY CATH
[2018-04-11 00:37] LABS: BACTERIA,URINE 3+ /HPF (Neg); RBC,URINE TNTC /HPF (0-2)
[2018-04-11 00:38] LABS: SQUAMOUS EPITHELIAL CELL,UR FEW /LPF (FEW)
[2018-04-11] MEDS ORDERED: CIPR-230 PO (00:47)
[2018-04-11] MEDS ORDERED: ciprofloxacin 250mg tablet PO ONE (01:05)
== END 2018-04-11 01:11 | disposition home or self-care (01) ==
LOC: ER 22:03
DX: R33.9 Retention of urine, unspecified (principal); N39.0 Urinary tract infection, site not specified; R31.9 Hematuria, unspecified; I48.91 Unspecified atrial fibrillation; I25.10 Atherosclerotic heart disease of native coronary artery without angina pectoris; E78.00 Pure hypercholesterolemia, unspecified; I10 Essential (primary) hypertension; I25.2 Old myocardial infarction; Z86.711 Personal history of pulmonary embolism; Z95.1 Presence of aortocoronary bypass graft; Z79.01 Long term (current) use of anticoagulants; Z86.718 Personal history of other venous thrombosis and embolism; Z95.0 Presence of cardiac pacemaker; Z79.82 Long term (current) use of aspirin
CPT/HCPCS: 36415; 51702; 80053; 81001; 85025; 85610; 85730; 87077; 87088; 87186; 96374; 99284; J2405

== ENCOUNTER 2018-04-14 17:15 | Emergency (ER) | payer MEDICARE, MEDICAID ==
[~2018-04-14] VITALS: Ht 180.3 cm; Wt 108.6 kg
[~2018-04-14 17:15] MED LIST changes: +CIPR-230 PO
[2018-04-14 17:19] VITALS: BP 107/73
== END 2018-04-14 17:53 | disposition home or self-care (01) ==
LOC: ER 17:15
DX: T83.098A Other mechanical complication of other urinary catheter, initial encounter (principal); I48.91 Unspecified atrial fibrillation; I25.10 Atherosclerotic heart disease of native coronary artery without angina pectoris; E78.00 Pure hypercholesterolemia, unspecified; I10 Essential (primary) hypertension; Z86.711 Personal history of pulmonary embolism; Z95.1 Presence of aortocoronary bypass graft; Z95.0 Presence of cardiac pacemaker; Z79.899 Other long term (current) drug therapy; Z79.82 Long term (current) use of aspirin; Z79.01 Long term (current) use of anticoagulants; Y92.9 Unspecified place or not applicable
CPT/HCPCS: 99281; 99282

== ENCOUNTER 2018-04-18 19:27 | Emergency (ER) | payer MEDICARE, MEDICAID ==
[~2018-04-18] VITALS: Ht 180.3 cm; Wt 104.5 kg
[2018-04-18 20:24] LABS: CLARITY,URINE CLEAR (Clear); COLOR,URINE YELLOW (Yellow); GLUCOSE, URINE NEGATIVE (Neg); KETONES,URINE NEGATIVE (Neg); LEUKOCYTE ESTERASE ,URINE NEGATIVE (Neg); NITRITES, URINE NEGATIVE (Neg); OCCULT BLOOD,URINE NEGATIVE (Neg); PROTEIN,URINE NEGATIVE (Neg)
[2018-04-18 20:31] LABS: UA COLLECTION TYPE FOLEY CATH
[2018-04-18 21:21] VITALS: BP 129/60
== END 2018-04-18 21:34 | disposition home or self-care (01) ==
LOC: ER 19:28
DX: T83.098A Other mechanical complication of other urinary catheter, initial encounter (principal); I48.91 Unspecified atrial fibrillation; I25.10 Atherosclerotic heart disease of native coronary artery without angina pectoris; E78.00 Pure hypercholesterolemia, unspecified; I10 Essential (primary) hypertension; I25.2 Old myocardial infarction; Z86.711 Personal history of pulmonary embolism; Z95.1 Presence of aortocoronary bypass graft; Z95.0 Presence of cardiac pacemaker; Z79.899 Other long term (current) drug therapy; Z79.82 Long term (current) use of aspirin; Y92.9 Unspecified place or not applicable
CPT/HCPCS: 51702; 81003; 99284

== ENCOUNTER 2018-04-21 16:27 | Inpatient (IN) | payer MEDICARE, MEDICAID ==
[2018-04-20 22:00] VITALS: BP 102/78
[~2018-04-21] VITALS: Ht 180.3 cm; Wt 106.3 kg
[2018-04-21 17:20] LABS: BASOPHILS # (AUTO) 0.1 X10'3 (0-0.2); BASOPHILS % (AUTO) 1.8 % (0-1); EOSINOPHILS % (AUTO) 0.5 % (0-6); HEMATOCRIT 45.8 % (42.0-52.0); HEMOGLOBIN 14.7 g/dl (14.0-17.9); LYMPHOCYTES # (AUTO) 0.6 X10'3 (1.1-4.8); LYMPHOCYTES % (AUTO) 9.6 % (21-51); MEAN CORPUSCULAR HEMOGLOBIN 29.7 PG (27.0-31.0); MEAN CORPUSCULAR HGB CONC 32.1 % (33.0-36.5); MEAN CORPUSCULAR VOLUME 92.4 FL (78-98); MEAN PLATELET VOLUME 9.1 FL (7.4-10.4); MONOCYTES # (AUTO) 0.6 X10'3 (0-0.9); MONOCYTES % (AUTO) 8.8 % (2-12); NEUTROPHILS # (AUTO) 5.3 X10'3 (1.8-7.7); NEUTROPHILS % (AUTO) 79.3 % (42-75); PLATELET COUNT 186 X10'3 (140-440); RED BLOOD COUNT 4.95 X10'6 (4.70-6.10); RED CELL DISTRIBUTION WIDTH 17.4 % (11.5-14.5); WHITE BLOOD COUNT 6.7 X10'3 (4.5-11.0)
[2018-04-21 17:33] LABS: ALANINE AMINOTRANSFERASE 52 U/L (12-78); ALBUMIN 3.3 G/DL (3.4-5.0); ALBUMIN/GLOBULIN RATIO 0.8 (1.1-1.5); ALKALINE PHOSPHATASE 86 IU/L (46-116); ANION GAP 13 (8-16); ASPARTATE AMINO TRANSFERASE 47 U/L (10-37); BILIRUBIN,TOTAL 1.9 MG/DL (0.1-1.0); BLOOD UREA NITROGEN 39 MG/DL (7-18); CHLORIDE 96 MMOL/L (99-107); CREATININE 1.95 MG/DL (0.60-1.10); GLUCOSE 139 MG/DL (70-104); POTASSIUM 4.5 MMOL/L (3.5-5.1); SODIUM 135 MMOL/L (135-145); TOTAL CARBON DIOXIDE 25.8 MMOL/L (24-32); TOTAL PROTEIN 7.7 G/DL (6.4-8.2); eGFR 34 ML/MIN
[2018-04-21 17:37] LABS: D-DIMER 0.52 MG/L FEU (0-0.50); INR 1.6 INR; PARTIAL THROMBOPLASTIN TIME 35 SECONDS (22-32); PROTHROMBIN TIME 15.5 SECONDS (9.0-12.0)
[2018-04-21 17:40] LABS: MAGNESIUM 1.9 MG/DL (1.5-2.4)
[2018-04-21] MEDS ORDERED: furosemide 10 MG/1 ML 10ml inj IV ONE (18:00)
[2018-04-21] MEDS ORDERED: acetaminophen 325mg tablet PO PRN (18:30)
[2018-04-21] MEDS ORDERED: mag hydrox/Alum hydrox/simeth 30ml oral suspension PO PRN (18:30)
[2018-04-21] MEDS ORDERED: PRIM50TA27 PO (18:37)
[2018-04-21] MEDS ORDERED: LISI2.5T2 PO (18:37)
[2018-04-21 19:03] LABS: CLARITY,URINE CLOUDY (Clear); COLOR,URINE YELLOW (Yellow); GLUCOSE, URINE NEGATIVE (Neg); KETONES,URINE NEGATIVE (Neg); LEUKOCYTE ESTERASE ,URINE TRACE (Neg); NITRITES, URINE NEGATIVE (Neg); OCCULT BLOOD,URINE LARGE (Neg); PROTEIN,URINE 100 mg/dl (Neg); UROBILINOGEN,URINE 0.2 E.U/dL (0.2-1.0)
[2018-04-21 19:10] LABS: BACTERIA,URINE FEW /HPF (Neg); UA COLLECTION TYPE FOLEY CATH
[2018-04-21 19:11] LABS: AMORPHOUS URATES 1+; MUCUS STRANDS FEW /LPF (Neg); SQUAMOUS EPITHELIAL CELL,UR FEW /LPF (FEW)
[2018-04-21] MEDS: carvedilol 6.25mg tablet PO SCH (20:12)
[2018-04-21] MEDS: temazepam 15mg capsule PO PRN (21:55)
[2018-04-21] MEDS: primidone 50mg tablet PO SCH (21:55)
[2018-04-22] MEDS: furosemide 40mg/4ml inj IV SCH ×4 (00:55→19:59)
[2018-04-22 02:00] VITALS: BP 96/69
[2018-04-22 05:34] LABS: BASOPHILS % (AUTO) 0.4 % (0-1); EOSINOPHILS # (AUTO) 0.1 X10'3 (0-0.9); EOSINOPHILS % (AUTO) 0.9 % (0-6); HEMATOCRIT 41.6 % (42.0-52.0); HEMOGLOBIN 13.6 g/dl (14.0-17.9); LYMPHOCYTES # (AUTO) 1.2 X10'3 (1.1-4.8); LYMPHOCYTES % (AUTO) 16.9 % (21-51); MEAN CORPUSCULAR HEMOGLOBIN 29.9 PG (27.0-31.0); MEAN CORPUSCULAR HGB CONC 32.7 % (33.0-36.5); MEAN CORPUSCULAR VOLUME 91.5 FL (78-98); MEAN PLATELET VOLUME 9.3 FL (7.4-10.4); MONOCYTES % (AUTO) 13.6 % (2-12); NEUTROPHILS # (AUTO) 4.9 X10'3 (1.8-7.7); NEUTROPHILS % (AUTO) 68.2 % (42-75); PLATELET COUNT 178 X10'3 (140-440); RED BLOOD COUNT 4.55 X10'6 (4.70-6.10); RED CELL DISTRIBUTION WIDTH 16.9 % (11.5-14.5); WHITE BLOOD COUNT 7.2 X10'3 (4.5-11.0)
[2018-04-22 05:51] LABS: ANION GAP 8 (8-16); BLOOD UREA NITROGEN 42 MG/DL (7-18); BUN/CREATININE RATIO 26.8 (5.4-32.0); CALCIUM 8.8 MG/DL (8.5-10.1); CHLORIDE 98 MMOL/L (99-107); CREATININE 1.57 MG/DL (0.60-1.10); GLUCOSE 101 MG/DL (70-104); POTASSIUM 4.1 MMOL/L (3.5-5.1); SODIUM 135 MMOL/L (135-145); TOTAL CARBON DIOXIDE 28.6 MMOL/L (24-32); eGFR 43 ML/MIN
[2018-04-22 06:44] VITALS: BP 97/67
[2018-04-22] MEDS: lisinopril 2.5mg tablet PO SCH ×2 (07:19→08:00)
[2018-04-22] MEDS: carvedilol 6.25mg tablet PO SCH ×2 (07:19→20:00)
[2018-04-22] MEDS: aspirin 81mg tablet.DR PO SCH (07:19)
[2018-04-22] MEDS: enoxaparin 100mg/ml syringe SUBCUT SCH (07:20)
[2018-04-22] MEDS: atorvastatin 20mg tablet PO SCH (07:31)
[2018-04-22] MEDS ORDERED: non-formulary drug (Atorvastatin Calcium* (Lipitor*) 1 TAB) PO SCH (08:00)
[2018-04-22] MEDS: spironolactone 25 MG tablet PO SCH (08:18)
[2018-04-22] MEDS: primidone 50mg tablet PO SCH ×3 (08:18→20:09)
[2018-04-22 11:00] VITALS: BP 139/112
[2018-04-22] MEDS ORDERED: furosemide 40mg/4ml inj IV ONE (12:15)
[2018-04-22] MEDS: ondansetron/PF 4mg/2ml inj IV PRN ×2 (13:02→21:08)
[2018-04-22 15:00] VITALS: BP 94/65
[2018-04-22 19:00] VITALS: BP 88/55
[2018-04-22] MEDS: tamsulosin 0.4mg capsule PO SCH (20:09)
[2018-04-22] MEDS: temazepam 15mg capsule PO PRN (21:08)
[2018-04-22 23:00] VITALS: BP 105/74
[2018-04-23 03:00] VITALS: BP 102/75
[2018-04-23 06:00] VITALS: BP 118/64
[2018-04-23 06:08] LABS: BASOPHILS % (AUTO) 0.7 % (0-1); EOSINOPHILS % (AUTO) 0.4 % (0-6); HEMATOCRIT 41.8 % (42.0-52.0); HEMOGLOBIN 13.6 g/dl (14.0-17.9); LYMPHOCYTES # (AUTO) 1.3 X10'3 (1.1-4.8); LYMPHOCYTES % (AUTO) 20.8 % (21-51); MEAN CORPUSCULAR HEMOGLOBIN 29.7 PG (27.0-31.0); MEAN CORPUSCULAR HGB CONC 32.4 % (33.0-36.5); MEAN CORPUSCULAR VOLUME 91.5 FL (78-98); MEAN PLATELET VOLUME 9.4 FL (7.4-10.4); MONOCYTES # (AUTO) 0.7 X10'3 (0-0.9); MONOCYTES % (AUTO) 11.6 % (2-12); NEUTROPHILS # (AUTO) 4.2 X10'3 (1.8-7.7); NEUTROPHILS % (AUTO) 66.5 % (42-75); PLATELET COUNT 166 X10'3 (140-440); RED BLOOD COUNT 4.57 X10'6 (4.70-6.10); RED CELL DISTRIBUTION WIDTH 17.1 % (11.5-14.5); WHITE BLOOD COUNT 6.3 X10'3 (4.5-11.0)
[2018-04-23 06:20] LABS: ALBUMIN 2.9 G/DL (3.4-5.0); ANION GAP 9 (8-16); BLOOD UREA NITROGEN 46 MG/DL (7-18); BUN/CREATININE RATIO 31.1 (5.4-32.0); CALCIUM 8.5 MG/DL (8.5-10.1); CHLORIDE 97 MMOL/L (99-107); CREATININE 1.48 MG/DL (0.60-1.10); GLUCOSE 100 MG/DL (70-104); POTASSIUM 4.1 MMOL/L (3.5-5.1); SODIUM 134 MMOL/L (135-145); TOTAL CARBON DIOXIDE 28.5 MMOL/L (24-32); eGFR 46 ML/MIN
[2018-04-23] MEDS: furosemide 40mg/4ml inj IV SCH (08:07)
[2018-04-23] MEDS: spironolactone 25 MG tablet PO SCH (08:08)
[2018-04-23] MEDS: primidone 50mg tablet PO SCH (08:08)
[2018-04-23] MEDS: aspirin 81mg tablet.DR PO SCH (08:09)
[2018-04-23] MEDS: atorvastatin 20mg tablet PO SCH (08:09)
[2018-04-23] MEDS: carvedilol 6.25mg tablet PO SCH ×2 (08:09→20:00)
[2018-04-23] MEDS: enoxaparin 100mg/ml syringe SUBCUT SCH ×2 (08:15→20:17)
[2018-04-23 09:24] LABS: ALANINE AMINOTRANSFERASE 57 U/L (12-78); ALBUMIN 2.9 G/DL (3.4-5.0); ALBUMIN/GLOBULIN RATIO 0.7 (1.1-1.5); ALKALINE PHOSPHATASE 75 IU/L (46-116); ASPARTATE AMINO TRANSFERASE 41 U/L (10-37); BILIRUBIN,TOTAL 1.1 MG/DL (0.1-1.0); TOTAL PROTEIN 6.8 G/DL (6.4-8.2)
[2018-04-23 09:30] LABS: BILIRUBIN,DIRECT 0.5 MG/DL (0-0.3)
[2018-04-23 11:00] VITALS: BP 81/58
[2018-04-23] MEDS ORDERED: normal saline 500ml IV soln 500 ML IV ONE (14:15)
[2018-04-23 15:00] VITALS: BP 87/64
[2018-04-23] MEDS: normal saline 1000ml 1,000 ML IV SCH (15:22)
[2018-04-23 19:00] VITALS: BP 96/68
[2018-04-23] MEDS: tamsulosin 0.4mg capsule PO SCH (21:00)
[2018-04-23 21:43] LABS: BASOPHILS % (AUTO) 0.4 % (0-1); EOSINOPHILS # (AUTO) 0.1 X10'3 (0-0.9); HEMATOCRIT 40.4 % (42.0-52.0); HEMOGLOBIN 13.1 g/dl (14.0-17.9); LYMPHOCYTES # (AUTO) 1.3 X10'3 (1.1-4.8); LYMPHOCYTES % (AUTO) 19.9 % (21-51); MEAN CORPUSCULAR HEMOGLOBIN 29.7 PG (27.0-31.0); MEAN CORPUSCULAR HGB CONC 32.3 % (33.0-36.5); MEAN CORPUSCULAR VOLUME 91.9 FL (78-98); MEAN PLATELET VOLUME 9.2 FL (7.4-10.4); MONOCYTES # (AUTO) 0.7 X10'3 (0-0.9); MONOCYTES % (AUTO) 10.6 % (2-12); NEUTROPHILS # (AUTO) 4.4 X10'3 (1.8-7.7); NEUTROPHILS % (AUTO) 68.1 % (42-75); PLATELET COUNT 171 X10'3 (140-440); RED CELL DISTRIBUTION WIDTH 17.4 % (11.5-14.5); WHITE BLOOD COUNT 6.4 X10'3 (4.5-11.0)
[2018-04-23 21:56] LABS: ALBUMIN 2.8 G/DL (3.4-5.0); ANION GAP 5 (8-16); BLOOD UREA NITROGEN 41 MG/DL (7-18); BUN/CREATININE RATIO 30.1 (5.4-32.0); CALCIUM 8.1 MG/DL (8.5-10.1); CHLORIDE 97 MMOL/L (99-107); CREATININE 1.36 MG/DL (0.60-1.10); GLUCOSE 99 MG/DL (70-104); POTASSIUM 3.8 MMOL/L (3.5-5.1); SODIUM 133 MMOL/L (135-145); TOTAL CARBON DIOXIDE 30.6 MMOL/L (24-32); TROPONIN I 0.04 NG/ML (0.0-0.05); eGFR 51 ML/MIN
[2018-04-23 21:59] LABS: INR 1.3 INR; PROTHROMBIN TIME 13.3 SECONDS (9.0-12.0)
[2018-04-23 23:00] VITALS: BP 97/62
[2018-04-24 03:00] VITALS: BP 95/66
[2018-04-24] MEDS: hydrocortisone sod succ/PF 100mg/2ml inj. IV SCH ×3 (03:51→14:48)
[2018-04-24 06:00] VITALS: BP 97/72
[2018-04-24 06:05] LABS: BASOPHILS % (AUTO) 0.4 % (0-1); EOSINOPHILS # (AUTO) 0.1 X10'3 (0-0.9); EOSINOPHILS % (AUTO) 1.3 % (0-6); HEMATOCRIT 41.2 % (42.0-52.0); HEMOGLOBIN 13.6 g/dl (14.0-17.9); LYMPHOCYTES # (AUTO) 0.8 X10'3 (1.1-4.8); LYMPHOCYTES % (AUTO) 13.1 % (21-51); MEAN CORPUSCULAR HEMOGLOBIN 30.2 PG (27.0-31.0); MEAN CORPUSCULAR VOLUME 91.6 FL (78-98); MEAN PLATELET VOLUME 9.3 FL (7.4-10.4); MONOCYTES # (AUTO) 0.6 X10'3 (0-0.9); MONOCYTES % (AUTO) 9.4 % (2-12); NEUTROPHILS # (AUTO) 4.9 X10'3 (1.8-7.7); NEUTROPHILS % (AUTO) 75.8 % (42-75); PLATELET COUNT 170 X10'3 (140-440); RED CELL DISTRIBUTION WIDTH 16.6 % (11.5-14.5); WHITE BLOOD COUNT 6.4 X10'3 (4.5-11.0)
[2018-04-24 07:43] LABS: ALBUMIN 3.1 G/DL (3.4-5.0); ANION GAP 7 (8-16); BLOOD UREA NITROGEN 40 MG/DL (7-18); BUN/CREATININE RATIO 29.4 (5.4-32.0); CHLORIDE 97 MMOL/L (99-107); CHOL/HDL RATIO 3.9 (0.00-4.99); CHOLESTEROL 97 MG/DL (0-200); CREATININE 1.36 MG/DL (0.60-1.10); GLUCOSE 120 MG/DL (70-104); HDL CHOLESTEROL 25 MG/DL (35-60); LDL CHOLESTEROL 65 MG/DL (50-100); POTASSIUM 4.2 MMOL/L (3.5-5.1); SODIUM 133 MMOL/L (135-145); TOTAL CARBON DIOXIDE 29.5 MMOL/L (24-32); TRIGLYCERIDES 76 MG/DL (20-135); eGFR 51 ML/MIN
[2018-04-24 08:00] VITALS: BP 152/133
[2018-04-24] MEDS: atorvastatin 20mg tablet PO SCH (08:36)
[2018-04-24] MEDS: lisinopril 2.5mg tablet PO SCH (08:37)
[2018-04-24] MEDS: enoxaparin 100mg/ml syringe SUBCUT SCH ×2 (08:39→20:40)
[2018-04-24] MEDS: aspirin 81mg tablet.DR PO SCH (08:39)
[2018-04-24] MEDS: normal saline 1000ml 1,000 ML IV SCH ×2 (08:40→18:51)
[2018-04-24] MEDS: spironolactone 25 MG tablet PO SCH (08:40)
[2018-04-24] MEDS: carvedilol 6.25mg tablet PO SCH ×2 (08:41→20:00)
[2018-04-24 11:00] VITALS: BP 93/67
[2018-04-24 18:00] VITALS: BP 88/57
[2018-04-24] MEDS: tamsulosin 0.4mg capsule PO SCH (20:39)
[2018-04-24 22:00] VITALS: BP 80/53
[2018-04-25 02:00] VITALS: BP 93/63
[2018-04-25 05:53] LABS: BASOPHILS % (AUTO) 0.2 % (0-1); EOSINOPHILS % (AUTO) 0.4 % (0-6); HEMATOCRIT 39.5 % (42.0-52.0); HEMOGLOBIN 12.8 g/dl (14.0-17.9); LYMPHOCYTES # (AUTO) 0.6 X10'3 (1.1-4.8); LYMPHOCYTES % (AUTO) 8.4 % (21-51); MEAN CORPUSCULAR HEMOGLOBIN 29.9 PG (27.0-31.0); MEAN CORPUSCULAR HGB CONC 32.3 % (33.0-36.5); MEAN CORPUSCULAR VOLUME 92.8 FL (78-98); MEAN PLATELET VOLUME 9.5 FL (7.4-10.4); MONOCYTES # (AUTO) 0.5 X10'3 (0-0.9); MONOCYTES % (AUTO) 7.6 % (2-12); NEUTROPHILS % (AUTO) 83.4 % (42-75); PLATELET COUNT 166 X10'3 (140-440); RED BLOOD COUNT 4.26 X10'6 (4.70-6.10); RED CELL DISTRIBUTION WIDTH 16.7 % (11.5-14.5); WHITE BLOOD COUNT 7.3 X10'3 (4.5-11.0)
[2018-04-25 06:18] LABS: ALBUMIN 2.7 G/DL (3.4-5.0); ANION GAP 6 (8-16); BLOOD UREA NITROGEN 34 MG/DL (7-18); BUN/CREATININE RATIO 33.3 (5.4-32.0); CALCIUM 8.3 MG/DL (8.5-10.1); CHLORIDE 97 MMOL/L (99-107); CREATININE 1.02 MG/DL (0.60-1.10); GLUCOSE 137 MG/DL (70-104); POTASSIUM 4.1 MMOL/L (3.5-5.1); SODIUM 129 MMOL/L (135-145); TOTAL CARBON DIOXIDE 26.4 MMOL/L (24-32); eGFR 71 ML/MIN
[2018-04-25] MEDS: aspirin 81mg tablet.DR PO SCH (07:22)
[2018-04-25] MEDS: atorvastatin 20mg tablet PO SCH (07:23)
[2018-04-25] MEDS: spironolactone 25 MG tablet PO SCH (07:23)
[2018-04-25] MEDS: enoxaparin 100mg/ml syringe SUBCUT SCH ×2 (07:24→20:28)
[2018-04-25] MEDS: carvedilol 6.25mg tablet PO SCH ×2 (07:24→20:00)
[2018-04-25 08:00] VITALS: BP 82/59
[2018-04-25] MEDS: normal saline 1000ml 1,000 ML IV SCH ×2 (09:09→15:47)
[2018-04-25 11:00] VITALS: BP 95/67
[2018-04-25] MEDS: ondansetron/PF 4mg/2ml inj IV PRN ×2 (12:11→21:38)
[2018-04-25 15:00] VITALS: BP 79/60
[2018-04-25] MEDS: magnesium hydroxide 30ml (MOM) UD suspension PO PRN ×2 (15:50→23:44)
[2018-04-25] MEDS ORDERED: acetaminophen 325mg tablet PO PRN (16:35)
[2018-04-25] MEDS: HYDROcodone/acetaminophen 5mg/325mg tablet PO PRN ×2 (17:07→22:16)
[2018-04-25 18:00] VITALS: BP 97/71
[2018-04-25] MEDS: digoxin 250mcg (0.25mg) tablet PO SCH (19:04)
[2018-04-25] MEDS: fludrocortisone acetate 0.1mg tablet PO SCH (19:04)
[2018-04-25] MEDS: tamsulosin 0.4mg capsule PO SCH (20:28)
[2018-04-25 22:00] VITALS: BP 141/87
[2018-04-26 02:00] VITALS: BP 102/64
[2018-04-26 06:00] VITALS: BP 90/66
[2018-04-26 07:00] LABS: BASOPHILS % (AUTO) 0.5 % (0-1); EOSINOPHILS % (AUTO) 0.3 % (0-6); HEMATOCRIT 41.2 % (42.0-52.0); HEMOGLOBIN 13.5 g/dl (14.0-17.9); LYMPHOCYTES # (AUTO) 1.2 X10'3 (1.1-4.8); LYMPHOCYTES % (AUTO) 13.2 % (21-51); MEAN CORPUSCULAR HGB CONC 32.8 % (33.0-36.5); MEAN CORPUSCULAR VOLUME 91.5 FL (78-98); MEAN PLATELET VOLUME 9.5 FL (7.4-10.4); MONOCYTES # (AUTO) 0.7 X10'3 (0-0.9); MONOCYTES % (AUTO) 8.2 % (2-12); NEUTROPHILS # (AUTO) 6.9 X10'3 (1.8-7.7); NEUTROPHILS % (AUTO) 77.8 % (42-75); PLATELET COUNT 161 X10'3 (140-440); RED CELL DISTRIBUTION WIDTH 16.9 % (11.5-14.5); WHITE BLOOD COUNT 8.8 X10'3 (4.5-11.0)
[2018-04-26 07:28] LABS: ANION GAP 9 (8-16); BLOOD UREA NITROGEN 37 MG/DL (7-18); CHLORIDE 93 MMOL/L (99-107); CREATININE 1.24 MG/DL (0.60-1.10); GLUCOSE 108 MG/DL (70-104); POTASSIUM 4.3 MMOL/L (3.5-5.1); SODIUM 128 MMOL/L (135-145); TOTAL CARBON DIOXIDE 26.2 MMOL/L (24-32)
[2018-04-26 07:29] LABS: ALBUMIN 2.9 G/DL (3.4-5.0); BUN/CREATININE RATIO 29.8 (5.4-32.0); CALCIUM 8.3 MG/DL (8.5-10.1); eGFR 57 ML/MIN
[2018-04-26] MEDS: aspirin 81mg tablet.DR PO SCH (08:00)
[2018-04-26] MEDS: atorvastatin 20mg tablet PO SCH (08:01)
[2018-04-26] MEDS: spironolactone 25 MG tablet PO SCH (08:01)
[2018-04-26] MEDS: carvedilol 6.25mg tablet PO SCH (08:01)
[2018-04-26] MEDS: fludrocortisone acetate 0.1mg tablet PO SCH (08:05)
[2018-04-26] MEDS: enoxaparin 100mg/ml syringe SUBCUT SCH (08:06)
[2018-04-26] MEDS: digoxin 250mcg (0.25mg) tablet PO SCH (08:12)
[2018-04-26 11:00] VITALS: BP 97/66
== END 2018-04-26 16:00 | DRG 682 ==
LOC: ER 16:27 → ED HOLD 18:28 → EDBEDREQ 20:08 → PCU 3S 20:36
PROVIDERS: ADMIT Hospitalist; ATTEND Family Medicine
DX: N17.9 Acute kidney failure, unspecified (principal); I50.23 Acute on chronic systolic (congestive) heart failure; I42.9 Cardiomyopathy, unspecified; G93.40 Encephalopathy, unspecified; I13.0 Hypertensive heart and chronic kidney disease with heart failure and stage 1 through stage 4 chronic kidney disease, or unspecified chronic kidney disease; E78.00 Pure hypercholesterolemia, unspecified; R07.9 Chest pain, unspecified; F03.90 Unspecified dementia, unspecified severity, without behavioral disturbance, psychotic disturbance, mood disturbance, and anxiety; N18.9 Chronic kidney disease, unspecified; K80.20 Calculus of gallbladder without cholecystitis without obstruction; I51.3 Intracardiac thrombosis, not elsewhere classified; N13.9 Obstructive and reflux uropathy, unspecified; G20 Parkinson's disease; I25.10 Atherosclerotic heart disease of native coronary artery without angina pectoris; I48.91 Unspecified atrial fibrillation; Z96.642 Presence of left artificial hip joint; I25.2 Old myocardial infarction; Z79.01 Long term (current) use of anticoagulants; Z95.1 Presence of aortocoronary bypass graft; Z95.810 Presence of automatic (implantable) cardiac defibrillator; Z86.711 Personal history of pulmonary embolism; Z87.440 Personal history of urinary (tract) infections; Y92.89 Other specified places as the place of occurrence of the external cause
CPT/HCPCS: 36415; 70450; 71045; 71250; 76700; 80048; 80053; 80061; 80076; 81001; 82948; 83735; 83880; 84484; 85025; 85379; 85610; 85730; 87070; 87088; 92616; 93005; 93308; 93880; 96374; 97110; 97116; 97162; 97530; 99285; G0378; J1650; J1720; J1940; J2405; J7030

== ENCOUNTER 2018-05-13 17:04 | Emergency (ER) | payer MEDICARE, MEDICAID ==
[~2018-05-13] VITALS: Ht 180.3 cm; Wt 95.5 kg
[~2018-05-13 17:04] MED LIST changes: -CIPR-230 PO; -ENOX100S3 SQ; -FURO40TA4 PO; +LISI2.5T2 PO; -LISI2.5T89 PO; -NITR0.4T51 SL
[2018-05-13 17:19] VITALS: BP 107/71
[2018-05-13 18:26] LABS: INR 1.4 INR; PARTIAL THROMBOPLASTIN TIME 37 SECONDS (22-32); PROTHROMBIN TIME 13.8 SECONDS (9.0-12.0)
[2018-05-13 18:29] LABS: ALANINE AMINOTRANSFERASE 42 U/L (12-78); ALBUMIN 2.8 G/DL (3.4-5.0); ALBUMIN/GLOBULIN RATIO 0.8 (1.1-1.5); ALKALINE PHOSPHATASE 86 IU/L (46-116); ANION GAP 5 (8-16); ASPARTATE AMINO TRANSFERASE 25 U/L (10-37); BASOPHILS % (AUTO) 0.2 % (0-1); BILIRUBIN,TOTAL 1.3 MG/DL (0.1-1.0); BLOOD UREA NITROGEN 21 MG/DL (7-18); BUN/CREATININE RATIO 15.7 (5.4-32.0); CALCIUM 8.4 MG/DL (8.5-10.1); CHLORIDE 99 MMOL/L (99-107); CREATININE 1.34 MG/DL (0.60-1.10); EOSINOPHILS % (AUTO) 0.5 % (0-6); GLUCOSE 117 MG/DL (70-104); HEMATOCRIT 41.6 % (42.0-52.0); HEMOGLOBIN 13.4 g/dl (14.0-17.9); LYMPHOCYTES # (AUTO) 0.6 X10'3 (1.1-4.8); LYMPHOCYTES % (AUTO) 8.4 % (21-51); MAGNESIUM 2.2 MG/DL (1.5-2.4); MEAN CORPUSCULAR HGB CONC 32.2 % (33.0-36.5); MEAN CORPUSCULAR VOLUME 90.2 FL (78-98); MEAN PLATELET VOLUME 9.3 FL (7.4-10.4); MONOCYTES # (AUTO) 0.6 X10'3 (0-0.9); MONOCYTES % (AUTO) 8.1 % (2-12); NEUTROPHILS # (AUTO) 6.3 X10'3 (1.8-7.7); NEUTROPHILS % (AUTO) 82.8 % (42-75); PLATELET COUNT 151 X10'3 (140-440); POTASSIUM 4.9 MMOL/L (3.5-5.1); RED BLOOD COUNT 4.61 X10'6 (4.70-6.10); RED CELL DISTRIBUTION WIDTH 18.4 % (11.5-14.5); SODIUM 133 MMOL/L (135-145); TOTAL CARBON DIOXIDE 28.9 MMOL/L (24-32); TOTAL PROTEIN 6.5 G/DL (6.4-8.2); WHITE BLOOD COUNT 7.6 X10'3 (4.5-11.0); eGFR 52 ML/MIN
[2018-05-13 18:47] LABS: ANISOCYTOSIS 2+; BURR CELLS 2+; PLATELET ESTIMATE NORMAL; POLYCHROMASIA 1+
[2018-05-13 18:48] LABS: ACANTHOCYTES 1+; ELLIPTOCYTES 1+; POIKILOCYTOSIS 2+
[2018-05-13 19:09] LABS: CLARITY,URINE CLOUDY (Clear); GLUCOSE, URINE NEGATIVE (Neg); KETONES,URINE TRACE mg/dl (Neg); LEUKOCYTE ESTERASE ,URINE MODERATE (Neg); NITRITES, URINE POSITIVE (Neg); OCCULT BLOOD,URINE LARGE (Neg); PH,URINE 6.5 (4.8-8.0); PROTEIN,URINE 100 mg/dl (Neg)
[2018-05-13 19:10] LABS: COLOR,URINE AMBER (Yellow); UA COLLECTION TYPE FOLEY CATH
[2018-05-13] MEDS ORDERED: CEPH500C5 PO (19:25)
[2018-05-13] MEDS ORDERED: cephalexin 500mg capsule PO ONE (19:25)
[2018-05-13 19:27] LABS: BACTERIA,URINE 1+ /HPF (Neg); RBC,URINE TNTC /HPF (0-2); SQUAMOUS EPITHELIAL CELL,UR FEW /LPF (FEW); WBC,URINE 50-100 /HPF (0-4)
[2018-05-13 19:28] LABS: MUCUS STRANDS MODERATE /LPF (Neg)
== END 2018-05-13 21:22 | disposition home or self-care (01) ==
LOC: ER 17:05
DX: R55 Syncope and collapse (principal); N39.0 Urinary tract infection, site not specified; I48.91 Unspecified atrial fibrillation; I25.10 Atherosclerotic heart disease of native coronary artery without angina pectoris; E78.00 Pure hypercholesterolemia, unspecified; I10 Essential (primary) hypertension; I25.2 Old myocardial infarction; Z95.1 Presence of aortocoronary bypass graft; Z95.0 Presence of cardiac pacemaker; Z86.711 Personal history of pulmonary embolism; Z79.82 Long term (current) use of aspirin; Z79.899 Other long term (current) drug therapy
CPT/HCPCS: 36415; 70450; 71045; 80053; 81001; 83735; 84484; 85025; 85610; 85730; 87077; 87088; 87186; 93005; 99284

== ENCOUNTER 2018-05-17 01:44 | Inpatient (IN) | payer MEDICARE, MEDICAID ==
[~2018-05-17] VITALS: Ht 180.3 cm; Wt 104.5 kg
[~2018-05-17 01:44] MED LIST changes: +CEPH500C5 PO
[2018-05-17 03:23] LABS: BASOPHILS % (AUTO) 0.4 % (0-1); EOSINOPHILS # (AUTO) 0.1 X10'3 (0-0.9); EOSINOPHILS % (AUTO) 1.9 % (0-6); HEMATOCRIT 37.5 % (42.0-52.0); HEMOGLOBIN 12.1 g/dl (14.0-17.9); LYMPHOCYTES # (AUTO) 0.9 X10'3 (1.1-4.8); LYMPHOCYTES % (AUTO) 15.7 % (21-51); MEAN CORPUSCULAR HEMOGLOBIN 28.9 PG (27.0-31.0); MEAN CORPUSCULAR HGB CONC 32.2 % (33.0-36.5); MEAN CORPUSCULAR VOLUME 89.7 FL (78-98); MEAN PLATELET VOLUME 8.8 FL (7.4-10.4); MONOCYTES # (AUTO) 0.6 X10'3 (0-0.9); MONOCYTES % (AUTO) 10.1 % (2-12); NEUTROPHILS % (AUTO) 71.9 % (42-75); PLATELET COUNT 164 X10'3 (140-440); RED BLOOD COUNT 4.18 X10'6 (4.70-6.10); WHITE BLOOD COUNT 5.6 X10'3 (4.5-11.0)
[2018-05-17 03:42] LABS: ALANINE AMINOTRANSFERASE 55 U/L (12-78); ALBUMIN 2.4 G/DL (3.4-5.0); ALBUMIN/GLOBULIN RATIO 0.7 (1.1-1.5); ALKALINE PHOSPHATASE 89 IU/L (46-116); ANION GAP 5 (8-16); ASPARTATE AMINO TRANSFERASE 31 U/L (10-37); BILIRUBIN,TOTAL 0.8 MG/DL (0.1-1.0); BLOOD UREA NITROGEN 11 MG/DL (7-18); BUN/CREATININE RATIO 9.7 (5.4-32.0); CALCIUM 8.2 MG/DL (8.5-10.1); CHLORIDE 105 MMOL/L (99-107); CREATININE 1.13 MG/DL (0.60-1.10); GLUCOSE 91 MG/DL (70-104); POTASSIUM 3.7 MMOL/L (3.5-5.1); SODIUM 140 MMOL/L (135-145); TOTAL CARBON DIOXIDE 30.5 MMOL/L (24-32); TOTAL PROTEIN 5.7 G/DL (6.4-8.2); eGFR 63 ML/MIN
[2018-05-17 03:56] LABS: INR 1.3 INR; PARTIAL THROMBOPLASTIN TIME 33 SECONDS (22-32); PROTHROMBIN TIME 12.7 SECONDS (9.0-12.0)
[2018-05-17 04:51] LABS: CLARITY,URINE CLOUDY (Clear); COLOR,URINE RED (Yellow); UA COLLECTION TYPE FOLEY CATH
[2018-05-17 05:12] LABS: BACTERIA,URINE FEW /HPF (Neg); MUCUS STRANDS MODERATE /LPF (Neg); RBC,URINE TNTC /HPF (0-2); SQUAMOUS EPITHELIAL CELL,UR MODERATE /LPF (FEW); WBC,URINE TNTC /HPF (0-4)
[2018-05-17] MEDS ORDERED: diphenhydrAMINE 50 mg/ml inj IV PRN (05:40)
[2018-05-17] MEDS ORDERED: magnesium hydroxide 30ml (MOM) UD suspension PO PRN (05:40)
[2018-05-17] MEDS ORDERED: acetaminophen 325mg tablet PO PRN ×2 (05:40)
[2018-05-17] MEDS ORDERED: acetaminophen 650mg rectal suppository RC PRN (05:40)
[2018-05-17] MEDS ORDERED: mag hydrox/Alum hydrox/simeth 30ml oral suspension PO PRN (05:40)
[2018-05-17] MEDS ORDERED: morphine 2 MG/ML inj. syringe IV PRN (05:40)
[2018-05-17] MEDS ORDERED: metoclopramide 5 mg/ml inj IV PRN (05:40)
[2018-05-17] MEDS ORDERED: HYDROmorphone 1 mg/ml syringe IV PRN (05:40)
[2018-05-17] MEDS ORDERED: diphenhydrAMINE 25mg capsule PO PRN (05:40)
[2018-05-17] MEDS ORDERED: bisacodyl 10mg suppository rectal RC PRN (05:40)
[2018-05-17 06:23] LABS: PHOSPHORUS 2.8 MG/DL (2.3-4.5); TROPONIN I < 0.04 NG/ML (0.0-0.05)
[2018-05-17 06:34] LABS: HEMOGLOBIN A1C 6.6 % (4.5-6.2)
[2018-05-17] MEDS: docusate sod 100mg capsule PO SCH ×2 (08:00→19:33)
[2018-05-17] MEDS: pantoprazole 40 MG vial IV SCH (08:03)
[2018-05-17] MEDS: CefTRIAXone/D5W-Rocephin 1gm 50 ML IV SCH ×2 (08:04→19:25)
[2018-05-17] MEDS: furosemide 10 MG/1 ML 10ml inj IV SCH (08:04)
[2018-05-17 09:30] VITALS: BP 106/63
[2018-05-17 11:00] VITALS: BP 101/51
[2018-05-17 19:00] VITALS: BP 98/57
[2018-05-17] MEDS: carvedilol 6.25mg tablet PO SCH (20:00)
[2018-05-17] MEDS: tamsulosin 0.4mg capsule PO SCH (20:26)
[2018-05-18] VITALS: BP 95/54
[2018-05-18 05:03] LABS: BASOPHILS % (AUTO) 0.5 % (0-1); EOSINOPHILS # (AUTO) 0.1 X10'3 (0-0.9); EOSINOPHILS % (AUTO) 2.7 % (0-6); HEMATOCRIT 38.1 % (42.0-52.0); HEMOGLOBIN 12.2 g/dl (14.0-17.9); LYMPHOCYTES # (AUTO) 0.9 X10'3 (1.1-4.8); LYMPHOCYTES % (AUTO) 16.6 % (21-51); MEAN CORPUSCULAR HEMOGLOBIN 28.6 PG (27.0-31.0); MEAN CORPUSCULAR HGB CONC 31.9 % (33.0-36.5); MEAN CORPUSCULAR VOLUME 89.8 FL (78-98); MEAN PLATELET VOLUME 8.9 FL (7.4-10.4); MONOCYTES # (AUTO) 0.6 X10'3 (0-0.9); MONOCYTES % (AUTO) 11.1 % (2-12); NEUTROPHILS # (AUTO) 3.8 X10'3 (1.8-7.7); NEUTROPHILS % (AUTO) 69.1 % (42-75); PLATELET COUNT 161 X10'3 (140-440); RED BLOOD COUNT 4.25 X10'6 (4.70-6.10); RED CELL DISTRIBUTION WIDTH 18.3 % (11.5-14.5); WHITE BLOOD COUNT 5.6 X10'3 (4.5-11.0)
[2018-05-18 05:25] LABS: ALANINE AMINOTRANSFERASE 51 U/L (12-78); ALBUMIN 2.3 G/DL (3.4-5.0); ALBUMIN/GLOBULIN RATIO 0.7 (1.1-1.5); ALKALINE PHOSPHATASE 86 IU/L (46-116); ANION GAP 6 (8-16); ASPARTATE AMINO TRANSFERASE 27 U/L (10-37); BILIRUBIN,TOTAL 0.7 MG/DL (0.1-1.0); BLOOD UREA NITROGEN 13 MG/DL (7-18); BUN/CREATININE RATIO 12.1 (5.4-32.0); CALCIUM 8.2 MG/DL (8.5-10.1); CHLORIDE 104 MMOL/L (99-107); CHOL/HDL RATIO 2.4 (0.00-4.99); CHOLESTEROL 63 MG/DL (0-200); CREATININE 1.07 MG/DL (0.60-1.10); GLUCOSE 109 MG/DL (70-104); HDL CHOLESTEROL 26 MG/DL (35-60); LDL CHOLESTEROL 27 MG/DL (50-100); POTASSIUM 3.4 MMOL/L (3.5-5.1); SODIUM 140 MMOL/L (135-145); TOTAL CARBON DIOXIDE 30.5 MMOL/L (24-32); TOTAL PROTEIN 5.7 G/DL (6.4-8.2); TRIGLYCERIDES 54 MG/DL (20-135); eGFR 67 ML/MIN
[2018-05-18 08:00] VITALS: BP 96/52
[2018-05-18] MEDS: furosemide 10 MG/1 ML 10ml inj IV SCH (08:00)
[2018-05-18] MEDS: carvedilol 6.25mg tablet PO SCH ×2 (08:00→20:28)
[2018-05-18] MEDS: docusate sod 100mg capsule PO SCH ×3 (08:00→20:00)
[2018-05-18 09:30] VITALS: BP 96/59
[2018-05-18] MEDS: CefTRIAXone/D5W-Rocephin 1gm 50 ML IV SCH ×2 (09:31→20:28)
[2018-05-18] MEDS: pantoprazole 40 MG vial IV SCH (09:31)
[2018-05-18] MEDS: atorvastatin 20mg tablet PO SCH (09:32)
[2018-05-18] MEDS ORDERED: magnesium 4gm in 100ml NS 100 ML IV PRN (10:35)
[2018-05-18] MEDS ORDERED: potassium Cl 40MEQ/NS 500ml 500 ML IV PRN ×2 (10:35)
[2018-05-18] MEDS ORDERED: magnesium Cl slow-release 64mg tablet PO PRN (10:35)
[2018-05-18] MEDS ORDERED: magnesium 2GM in 50ml NS 50 ML IV PRN (10:35)
[2018-05-18] MEDS ORDERED: potassium Cl 20 mEq SR tablet PO PRN (10:35)
[2018-05-18] MEDS: potassium Cl 20 mEq SR tablet PO PRN ×2 (11:52→16:00)
[2018-05-18 12:00] VITALS: BP 91/65
[2018-05-18 19:00] VITALS: BP 113/75
[2018-05-18] MEDS: tamsulosin 0.4mg capsule PO SCH (20:28)
[2018-05-18] MEDS: ondansetron/PF 4mg/2ml inj IV PRN (20:28)
[2018-05-19] VITALS: BP 99/56
[2018-05-19 05:15] LABS: BASOPHILS % (AUTO) 0.7 % (0-1); EOSINOPHILS # (AUTO) 0.2 X10'3 (0-0.9); HEMATOCRIT 38.1 % (42.0-52.0); HEMOGLOBIN 12.2 g/dl (14.0-17.9); LYMPHOCYTES # (AUTO) 0.9 X10'3 (1.1-4.8); LYMPHOCYTES % (AUTO) 14.6 % (21-51); MEAN CORPUSCULAR HEMOGLOBIN 28.7 PG (27.0-31.0); MEAN CORPUSCULAR HGB CONC 31.9 % (33.0-36.5); MEAN CORPUSCULAR VOLUME 89.8 FL (78-98); MEAN PLATELET VOLUME 8.9 FL (7.4-10.4); MONOCYTES # (AUTO) 0.6 X10'3 (0-0.9); MONOCYTES % (AUTO) 10.4 % (2-12); NEUTROPHILS # (AUTO) 4.4 X10'3 (1.8-7.7); NEUTROPHILS % (AUTO) 71.3 % (42-75); PLATELET COUNT 175 X10'3 (140-440); RED BLOOD COUNT 4.24 X10'6 (4.70-6.10); RED CELL DISTRIBUTION WIDTH 18.7 % (11.5-14.5); WHITE BLOOD COUNT 6.2 X10'3 (4.5-11.0)
[2018-05-19] MEDS: ondansetron/PF 4mg/2ml inj IV PRN (05:21)
[2018-05-19 05:30] LABS: ALANINE AMINOTRANSFERASE 47 U/L (12-78); ALBUMIN 2.4 G/DL (3.4-5.0); ALBUMIN/GLOBULIN RATIO 0.7 (1.1-1.5); ALKALINE PHOSPHATASE 89 IU/L (46-116); ANION GAP 4 (8-16); ASPARTATE AMINO TRANSFERASE 21 U/L (10-37); BILIRUBIN,TOTAL 0.6 MG/DL (0.1-1.0); BLOOD UREA NITROGEN 10 MG/DL (7-18); BUN/CREATININE RATIO 9.8 (5.4-32.0); CALCIUM 8.2 MG/DL (8.5-10.1); CHLORIDE 103 MMOL/L (99-107); CREATININE 1.02 MG/DL (0.60-1.10); GLUCOSE 128 MG/DL (70-104); MAGNESIUM 1.6 MG/DL (1.5-2.4); POTASSIUM 3.7 MMOL/L (3.5-5.1); SODIUM 138 MMOL/L (135-145); TOTAL CARBON DIOXIDE 30.6 MMOL/L (24-32); TOTAL PROTEIN 5.8 G/DL (6.4-8.2); eGFR 71 ML/MIN
[2018-05-19 07:00] VITALS: BP 112/70
[2018-05-19] MEDS ORDERED: pantoprazole 40mg Tablet.DR PO SCH (07:30)
[2018-05-19] MEDS: HYDROcodone/acetaminophen 5mg/325mg tablet PO PRN ×2 (07:53→11:55)
[2018-05-19] MEDS: docusate sod 100mg capsule PO SCH ×2 (07:55→20:00)
[2018-05-19] MEDS: CefTRIAXone/D5W-Rocephin 1gm 50 ML IV SCH (07:55)
[2018-05-19] MEDS: atorvastatin 20mg tablet PO SCH (07:55)
[2018-05-19] MEDS: carvedilol 6.25mg tablet PO SCH ×2 (07:55→20:00)
[2018-05-19] MEDS: furosemide 10 MG/1 ML 10ml inj IV SCH (08:00)
[2018-05-19 12:00] VITALS: BP 106/57
[2018-05-19] MEDS: oxybutynin 5mg tablet PO SCH ×2 (17:50→21:05)
[2018-05-19 19:30] VITALS: BP 92/68
[2018-05-19] MEDS: lactobacillus rhamnosus 10,000 MMU CELLS/CAPSULE PO SCH (21:05)
[2018-05-19] MEDS: sulfamethoxazole/trimethoprim DS (800/160mg) tablet PO SCH (21:05)
[2018-05-19] MEDS: tamsulosin 0.4mg capsule PO SCH (21:05)
[2018-05-20] VITALS: BP 94/73
[2018-05-20 05:22] LABS: BASOPHILS % (AUTO) 0.4 % (0-1); EOSINOPHILS # (AUTO) 0.1 X10'3 (0-0.9); EOSINOPHILS % (AUTO) 1.9 % (0-6); HEMATOCRIT 41.2 % (42.0-52.0); HEMOGLOBIN 13.2 g/dl (14.0-17.9); LYMPHOCYTES # (AUTO) 1.2 X10'3 (1.1-4.8); LYMPHOCYTES % (AUTO) 18.7 % (21-51); MEAN CORPUSCULAR HEMOGLOBIN 28.8 PG (27.0-31.0); MEAN CORPUSCULAR VOLUME 89.8 FL (78-98); MEAN PLATELET VOLUME 8.9 FL (7.4-10.4); MONOCYTES # (AUTO) 0.7 X10'3 (0-0.9); MONOCYTES % (AUTO) 10.8 % (2-12); NEUTROPHILS # (AUTO) 4.5 X10'3 (1.8-7.7); NEUTROPHILS % (AUTO) 68.2 % (42-75); PLATELET COUNT 188 X10'3 (140-440); RED BLOOD COUNT 4.58 X10'6 (4.70-6.10); RED CELL DISTRIBUTION WIDTH 18.3 % (11.5-14.5); WHITE BLOOD COUNT 6.7 X10'3 (4.5-11.0)
[2018-05-20 05:41] LABS: ALANINE AMINOTRANSFERASE 45 U/L (12-78); ALBUMIN 2.7 G/DL (3.4-5.0); ALBUMIN/GLOBULIN RATIO 0.7 (1.1-1.5); ALKALINE PHOSPHATASE 91 IU/L (46-116); ANION GAP 8 (8-16); ASPARTATE AMINO TRANSFERASE 20 U/L (10-37); BLOOD UREA NITROGEN 12 MG/DL (7-18); BUN/CREATININE RATIO 11.2 (5.4-32.0); CALCIUM 8.6 MG/DL (8.5-10.1); CHLORIDE 100 MMOL/L (99-107); CREATININE 1.07 MG/DL (0.60-1.10); GLUCOSE 98 MG/DL (70-104); MAGNESIUM 1.7 MG/DL (1.5-2.4); SODIUM 136 MMOL/L (135-145); TOTAL CARBON DIOXIDE 28.5 MMOL/L (24-32); TOTAL PROTEIN 6.7 G/DL (6.4-8.2); eGFR 67 ML/MIN
[2018-05-20] MEDS: sulfamethoxazole/trimethoprim DS (800/160mg) tablet PO SCH ×2 (07:15→20:09)
[2018-05-20] MEDS: atorvastatin 20mg tablet PO SCH (07:15)
[2018-05-20] MEDS: lactobacillus rhamnosus 10,000 MMU CELLS/CAPSULE PO SCH ×2 (07:15→20:13)
[2018-05-20] MEDS: oxybutynin 5mg tablet PO SCH ×2 (07:15→20:12)
[2018-05-20] MEDS: ondansetron/PF 4mg/2ml inj IV PRN ×2 (07:16→15:22)
[2018-05-20] MEDS: furosemide 40mg tablet PO SCH (07:16)
[2018-05-20] MEDS: docusate sod 100mg capsule PO SCH ×2 (07:16→20:16)
[2018-05-20] MEDS: carvedilol 6.25mg tablet PO SCH ×2 (07:16→20:28)
[2018-05-20 07:50] VITALS: BP 97/68
[2018-05-20 11:01] VITALS: BP 97/61
[2018-05-20 20:00] VITALS: BP 107/62
[2018-05-20] MEDS: tamsulosin 0.4mg capsule PO SCH (20:16)
[2018-05-20 20:30] VITALS: BP 115/59
[2018-05-20] MEDS: temazepam 15mg capsule PO PRN (20:33)
[2018-05-20] MEDS ORDERED: VANCOMYCIN LEVEL IV ONE (23:30)
[2018-05-21] VITALS: BP 91/63
[2018-05-21 05:03] LABS: BASOPHILS # (AUTO) 0.1 X10'3 (0-0.2); BASOPHILS % (AUTO) 0.9 % (0-1); EOSINOPHILS # (AUTO) 0.1 X10'3 (0-0.9); EOSINOPHILS % (AUTO) 1.7 % (0-6); HEMATOCRIT 39.6 % (42.0-52.0); HEMOGLOBIN 12.6 g/dl (14.0-17.9); MEAN CORPUSCULAR HEMOGLOBIN 28.4 PG (27.0-31.0); MEAN CORPUSCULAR HGB CONC 31.8 % (33.0-36.5); MEAN CORPUSCULAR VOLUME 89.4 FL (78-98); MEAN PLATELET VOLUME 8.8 FL (7.4-10.4); MONOCYTES # (AUTO) 0.7 X10'3 (0-0.9); MONOCYTES % (AUTO) 11.6 % (2-12); NEUTROPHILS # (AUTO) 4.4 X10'3 (1.8-7.7); NEUTROPHILS % (AUTO) 69.8 % (42-75); PLATELET COUNT 167 X10'3 (140-440); RED BLOOD COUNT 4.43 X10'6 (4.70-6.10); RED CELL DISTRIBUTION WIDTH 18.7 % (11.5-14.5); WHITE BLOOD COUNT 6.3 X10'3 (4.5-11.0)
[2018-05-21 05:16] LABS: ALANINE AMINOTRANSFERASE 36 U/L (12-78); ALBUMIN 2.6 G/DL (3.4-5.0); ALBUMIN/GLOBULIN RATIO 0.7 (1.1-1.5); ALKALINE PHOSPHATASE 76 IU/L (46-116); ANION GAP 9 (8-16); ASPARTATE AMINO TRANSFERASE 13 U/L (10-37); BILIRUBIN,TOTAL 0.9 MG/DL (0.1-1.0); BLOOD UREA NITROGEN 17 MG/DL (7-18); BUN/CREATININE RATIO 13.7 (5.4-32.0); CALCIUM 8.8 MG/DL (8.5-10.1); CHLORIDE 100 MMOL/L (99-107); CREATININE 1.24 MG/DL (0.60-1.10); GLUCOSE 110 MG/DL (70-104); MAGNESIUM 1.8 MG/DL (1.5-2.4); POTASSIUM 4.5 MMOL/L (3.5-5.1); SODIUM 138 MMOL/L (135-145); TOTAL CARBON DIOXIDE 28.7 MMOL/L (24-32); TOTAL PROTEIN 6.3 G/DL (6.4-8.2); eGFR 57 ML/MIN
[2018-05-21] MEDS: ondansetron/PF 4mg/2ml inj IV PRN (05:44)
[2018-05-21] MEDS: atorvastatin 20mg tablet PO SCH (07:29)
[2018-05-21] MEDS: sulfamethoxazole/trimethoprim DS (800/160mg) tablet PO SCH ×2 (07:29→19:51)
[2018-05-21] MEDS: carvedilol 6.25mg tablet PO SCH ×2 (07:29→19:51)
[2018-05-21] MEDS: lactobacillus rhamnosus 10,000 MMU CELLS/CAPSULE PO SCH ×2 (07:29→19:51)
[2018-05-21] MEDS: oxybutynin 5mg tablet PO SCH ×2 (07:29→19:51)
[2018-05-21] MEDS: furosemide 40mg tablet PO SCH (07:29)
[2018-05-21] MEDS: docusate sod 100mg capsule PO SCH ×2 (07:30→19:51)
[2018-05-21 07:50] VITALS: BP 126/70
[2018-05-21 12:00] VITALS: BP 94/59
[2018-05-21 20:00] VITALS: BP 106/81
[2018-05-21] MEDS: tamsulosin 0.4mg capsule PO SCH (20:58)
[2018-05-21] MEDS: temazepam 15mg capsule PO PRN (20:58)
[2018-05-22] VITALS: BP 95/51
[2018-05-22 05:18] LABS: BASOPHILS % (AUTO) 0.5 % (0-1); EOSINOPHILS # (AUTO) 0.1 X10'3 (0-0.9); EOSINOPHILS % (AUTO) 1.3 % (0-6); HEMATOCRIT 38.1 % (42.0-52.0); HEMOGLOBIN 12.3 g/dl (14.0-17.9); LYMPHOCYTES % (AUTO) 13.8 % (21-51); MEAN CORPUSCULAR HEMOGLOBIN 28.8 PG (27.0-31.0); MEAN CORPUSCULAR HGB CONC 32.3 % (33.0-36.5); MEAN CORPUSCULAR VOLUME 89.3 FL (78-98); MEAN PLATELET VOLUME 9.1 FL (7.4-10.4); MONOCYTES # (AUTO) 0.7 X10'3 (0-0.9); MONOCYTES % (AUTO) 9.7 % (2-12); NEUTROPHILS # (AUTO) 5.2 X10'3 (1.8-7.7); NEUTROPHILS % (AUTO) 74.7 % (42-75); PLATELET COUNT 152 X10'3 (140-440); RED BLOOD COUNT 4.26 X10'6 (4.70-6.10); RED CELL DISTRIBUTION WIDTH 18.6 % (11.5-14.5); WHITE BLOOD COUNT 6.9 X10'3 (4.5-11.0)
[2018-05-22 05:35] LABS: ALANINE AMINOTRANSFERASE 31 U/L (12-78); ALBUMIN 2.6 G/DL (3.4-5.0); ALBUMIN/GLOBULIN RATIO 0.7 (1.1-1.5); ALKALINE PHOSPHATASE 74 IU/L (46-116); ANION GAP 10 (8-16); ASPARTATE AMINO TRANSFERASE 14 U/L (10-37); BLOOD UREA NITROGEN 20 MG/DL (7-18); BUN/CREATININE RATIO 16.8 (5.4-32.0); CALCIUM 8.6 MG/DL (8.5-10.1); CHLORIDE 101 MMOL/L (99-107); CREATININE 1.19 MG/DL (0.60-1.10); GLUCOSE 96 MG/DL (70-104); MAGNESIUM 1.8 MG/DL (1.5-2.4); POTASSIUM 4.1 MMOL/L (3.5-5.1); SODIUM 137 MMOL/L (135-145); TOTAL CARBON DIOXIDE 26.5 MMOL/L (24-32); TOTAL PROTEIN 6.1 G/DL (6.4-8.2); eGFR 60 ML/MIN
[2018-05-22] MEDS: docusate sod 100mg capsule PO SCH (07:47)
[2018-05-22] MEDS: atorvastatin 20mg tablet PO SCH (07:48)
[2018-05-22] MEDS: lactobacillus rhamnosus 10,000 MMU CELLS/CAPSULE PO SCH (07:48)
[2018-05-22] MEDS: carvedilol 6.25mg tablet PO SCH ×2 (07:48→07:51)
[2018-05-22] MEDS: sulfamethoxazole/trimethoprim DS (800/160mg) tablet PO SCH (07:48)
[2018-05-22] MEDS: oxybutynin 5mg tablet PO SCH (07:49)
[2018-05-22 08:00] VITALS: BP 95/67
[2018-05-22] MEDS ORDERED: furosemide 40mg tablet PO SCH (08:00)
[2018-05-22] MEDS: ondansetron/PF 4mg/2ml inj IV PRN (10:00)
[2018-05-22 11:00] VITALS: BP 92/67
[2018-05-22] MEDS ORDERED: TAMS0.4C32 PO (11:42)
[2018-05-22] MEDS ORDERED: BACDS PO (11:42)
[2018-05-22] MEDS ORDERED: LISI2.5T2 PO (11:42)
[2018-05-22] MEDS ORDERED: CARV6.253 PO (11:42)
[2018-05-22] MEDS ORDERED: FURO40TA4 PO (11:42)
[2018-05-22] MEDS ORDERED: OXYB5TAB11 PO (11:46)
== END 2018-05-22 15:11 | disposition home or self-care (01) | DRG 689 ==
LOC: ER 01:45 → ED HOLD 05:36 → SUR 3N 09:07
PROVIDERS: ADMIT Family Medicine; ATTEND Internal Medicine
DX: N30.91 Cystitis, unspecified with hematuria (principal); I50.23 Acute on chronic systolic (congestive) heart failure; I11.0 Hypertensive heart disease with heart failure; D50.0 Iron deficiency anemia secondary to blood loss (chronic); E78.00 Pure hypercholesterolemia, unspecified; B95.61 Methicillin susceptible Staphylococcus aureus infection as the cause of diseases classified elsewhere; I25.10 Atherosclerotic heart disease of native coronary artery without angina pectoris; N32.89 Other specified disorders of bladder; I48.91 Unspecified atrial fibrillation; I25.2 Old myocardial infarction; Z95.1 Presence of aortocoronary bypass graft; Z95.0 Presence of cardiac pacemaker; Z86.711 Personal history of pulmonary embolism; Z79.899 Other long term (current) drug therapy
CPT/HCPCS: 36415; 80053; 80061; 81001; 83036; 83605; 83735; 83880; 84100; 84484; 85025; 85610; 85730; 87040; 87070; 87077; 87088; 87186; 97116; 97162; 97530; 99285; C9113; G0378; J0696; J1940; J2405; J3370

== ENCOUNTER 2018-05-25 12:25 | Inpatient (IN) | payer MEDICARE, MEDICAID ==
[~2018-05-25] VITALS: Ht 180.3 cm; Wt 104.1 kg
[~2018-05-25 12:25] MED LIST changes: -ASPI81TA52 PO; +BACDS PO; -CEPH500C5 PO; +FURO40TA4 PO; +OXYB5TAB11 PO; -SPIR25TA5 PO; +TAMS0.4C32 PO
[2018-05-25] MEDS ORDERED: normal saline 1000ML IV soln IVB ONE (12:40)
[2018-05-25 12:48] LABS: BASOPHILS # (AUTO) 0.1 X10'3 (0-0.2); BASOPHILS % (AUTO) 0.8 % (0-1); EOSINOPHILS % (AUTO) 0.4 % (0-6); HEMATOCRIT 36.7 % (42.0-52.0); HEMOGLOBIN 11.7 g/dl (14.0-17.9); LYMPHOCYTES # (AUTO) 0.7 X10'3 (1.1-4.8); LYMPHOCYTES % (AUTO) 8.4 % (21-51); MEAN CORPUSCULAR HEMOGLOBIN 28.3 PG (27.0-31.0); MEAN CORPUSCULAR HGB CONC 31.9 % (33.0-36.5); MEAN CORPUSCULAR VOLUME 88.8 FL (78-98); MONOCYTES # (AUTO) 0.6 X10'3 (0-0.9); MONOCYTES % (AUTO) 7.6 % (2-12); NEUTROPHILS % (AUTO) 82.8 % (42-75); PLATELET COUNT 118 X10'3 (140-440); RED BLOOD COUNT 4.13 X10'6 (4.70-6.10); RED CELL DISTRIBUTION WIDTH 18.6 % (11.5-14.5); WHITE BLOOD COUNT 8.4 X10'3 (4.5-11.0)
[2018-05-25 13:02] LABS: CLARITY,URINE SLIGHTLY CLOUDY (Clear); COLOR,URINE YELLOW (Yellow); GLUCOSE, URINE NEGATIVE (Neg); KETONES,URINE NEGATIVE (Neg); LEUKOCYTE ESTERASE ,URINE SMALL (Neg); NITRITES, URINE NEGATIVE (Neg); OCCULT BLOOD,URINE LARGE (Neg); PH,URINE 5.5 (4.8-8.0); PROTEIN,URINE 30 mg/dl (Neg)
[2018-05-25 13:05] LABS: ALANINE AMINOTRANSFERASE 22 U/L (12-78); ALBUMIN 2.6 G/DL (3.4-5.0); ALBUMIN/GLOBULIN RATIO 0.8 (1.1-1.5); ALKALINE PHOSPHATASE 87 IU/L (46-116); ANION GAP 8 (8-16); ASPARTATE AMINO TRANSFERASE 12 U/L (10-37); BILIRUBIN,TOTAL 0.8 MG/DL (0.1-1.0); BLOOD UREA NITROGEN 28 MG/DL (7-18); BUN/CREATININE RATIO 17.6 (5.4-32.0); CHLORIDE 99 MMOL/L (99-107); CREATININE 1.59 MG/DL (0.60-1.10); ETHANOL < 0.010 GM/DL (0.0-0.010); GLUCOSE 106 MG/DL (70-104); MAGNESIUM 1.6 MG/DL (1.5-2.4); PHOSPHORUS 3.3 MG/DL (2.3-4.5); POTASSIUM 3.9 MMOL/L (3.5-5.1); SODIUM 135 MMOL/L (135-145); eGFR 43 ML/MIN
[2018-05-25 13:13] LABS: D-DIMER 8.12 MG/L FEU (0-0.50); INR 1.5 INR; PARTIAL THROMBOPLASTIN TIME 30 SECONDS (22-32); PROTHROMBIN TIME 14.5 SECONDS (9.0-12.0)
[2018-05-25 13:17] LABS: URINE AMPHETAMINE SCREEN NEGATIVE (Neg); URINE BARBITUATE SCREEN NEGATIVE (Neg); URINE BENZODIAZEPINES SCREEN NEGATIVE (Neg); URINE CANNABINOID SCREEN NEGATIVE (Neg); URINE COCAINE SCREEN NEGATIVE (Neg); URINE METHADONE SCREEN NEGATIVE (Neg); URINE OPIATE SCREEN NEGATIVE (Neg); URINE PHENCYCLIDINE SCREEN NEGATIVE (Neg)
[2018-05-25 13:18] LABS: UA COLLECTION TYPE OTHER
[2018-05-25 13:19] LABS: RBC,URINE TNTC /HPF (0-2)
[2018-05-25 13:20] LABS: BACTERIA,URINE FEW /HPF (Neg); MUCUS STRANDS NONE SEEN /LPF (Neg); SQUAMOUS EPITHELIAL CELL,UR NONE SEEN /LPF (FEW)
[2018-05-25] MEDS ORDERED: iohexol 350MG/ML 100ml bottle IV ONE (14:35)
[2018-05-25] MEDS ORDERED: HYDROcodone/acetaminophen 10/325mg tab PO PRN (15:20)
[2018-05-25] MEDS ORDERED: mag hydrox/Alum hydrox/simeth 30ml oral suspension PO PRN (15:20)
[2018-05-25] MEDS ORDERED: morphine 2 MG/ML inj. syringe IV PRN ×2 (15:20)
[2018-05-25] MEDS ORDERED: HYDROcodone/acetaminophen 5mg/325mg tablet PO PRN (15:20)
[2018-05-25] MEDS ORDERED: heparin 10,000 units/1 ML INJ IV PRN (15:20)
[2018-05-25] MEDS ORDERED: heparin 10,000 units/1 ML INJ IV ONE (15:20)
[2018-05-25] MEDS ORDERED: magnesium hydroxide 30ml (MOM) UD suspension PO PRN (15:20)
[2018-05-25] MEDS ORDERED: acetaminophen 325mg tablet PO PRN (15:20)
[2018-05-25] MEDS ORDERED: heparin 25,000 UNIT/250ml bag 250 ML IV SCH (15:20)
[2018-05-25] MEDS: heparin 25,000 UNIT/250ml bag 250 ML IV SCH (16:06)
[2018-05-25 17:39] VITALS: BP 93/61
[2018-05-25 19:00] VITALS: BP 88/53
[2018-05-25 23:00] VITALS: BP 91/54
[2018-05-26] VITALS (7 sets, daily range): BP systolic 80–95; BP diastolic 46–66
[2018-05-26] MEDS: temazepam 15mg capsule PO PRN ×2 (00:09→20:14)
[2018-05-26] MEDS: heparin 25,000 UNIT/250ml bag 250 ML IV SCH ×2 (01:04→06:59)
[2018-05-26 01:07] LABS: ALBUMIN 2.5 G/DL (3.4-5.0); ANION GAP 9 (8-16); BLOOD UREA NITROGEN 23 MG/DL (7-18); BUN/CREATININE RATIO 16.4 (5.4-32.0); CALCIUM 8.3 MG/DL (8.5-10.1); CHLORIDE 100 MMOL/L (99-107); GLUCOSE 97 MG/DL (70-104); POTASSIUM 3.7 MMOL/L (3.5-5.1); SODIUM 136 MMOL/L (135-145); eGFR 49 ML/MIN
[2018-05-26 03:08] LABS: BASOPHILS % (AUTO) 0.4 % (0-1); EOSINOPHILS # (AUTO) 0.1 X10'3 (0-0.9); EOSINOPHILS % (AUTO) 1.6 % (0-6); HEMATOCRIT 33.8 % (42.0-52.0); HEMOGLOBIN 10.9 g/dl (14.0-17.9); LYMPHOCYTES # (AUTO) 1.1 X10'3 (1.1-4.8); LYMPHOCYTES % (AUTO) 16.9 % (21-51); MEAN CORPUSCULAR HEMOGLOBIN 28.8 PG (27.0-31.0); MEAN CORPUSCULAR HGB CONC 32.4 % (33.0-36.5); MEAN CORPUSCULAR VOLUME 88.8 FL (78-98); MEAN PLATELET VOLUME 9.6 FL (7.4-10.4); MONOCYTES # (AUTO) 0.5 X10'3 (0-0.9); NEUTROPHILS # (AUTO) 4.8 X10'3 (1.8-7.7); NEUTROPHILS % (AUTO) 73.1 % (42-75); PLATELET COUNT 102 X10'3 (140-440); RED BLOOD COUNT 3.81 X10'6 (4.70-6.10); RED CELL DISTRIBUTION WIDTH 17.9 % (11.5-14.5); WHITE BLOOD COUNT 6.5 X10'3 (4.5-11.0)
[2018-05-26] MEDS ORDERED: enoxaparin 100mg/ml syringe SUBCUT SCH ×2 (09:45→16:52)
[2018-05-26] MEDS ORDERED: ASPI-1265 PO (17:14)
[2018-05-26] MEDS ORDERED: FLO0.4C PO (17:16)
[2018-05-26] MEDS ORDERED: CARV3.12 PO (17:18)
[2018-05-26] MEDS ORDERED: LISI2.5T2 PO (17:19)
[2018-05-26] MEDS ORDERED: FURO-149 PO (17:19)
[2018-05-26] MEDS ORDERED: OXYB5TAB11 PO (17:20)
[2018-05-26] MEDS ORDERED: BACDS PO (17:21)
[2018-05-26] MEDS: ondansetron/PF 4mg/2ml inj IV PRN (18:30)
[2018-05-26] MEDS ORDERED: sulfamethoxazole/trimethoprim DS (800/160mg) tablet PO SCH (20:00)
[2018-05-26] MEDS: tamsulosin 0.4mg capsule PO SCH (20:13)
[2018-05-26] MEDS: carVEDilol 3.125mg tablet PO SCH (20:14)
[2018-05-26] MEDS: oxybutynin 5mg tablet PO SCH (20:14)
[2018-05-26] MEDS: sulfamethoxazole/trimethoprim DS (800/160mg) tablet PO SCH (20:14)
[2018-05-26] MEDS: enoxaparin 100mg/ml syringe SUBCUT SCH (22:35)
[2018-05-27] VITALS (7 sets, daily range): BP systolic 87–95; BP diastolic 57–71
[2018-05-27 05:53] LABS: BASOPHILS % (AUTO) 0.2 % (0-1); EOSINOPHILS # (AUTO) 0.1 X10'3 (0-0.9); EOSINOPHILS % (AUTO) 1.6 % (0-6); HEMATOCRIT 36.8 % (42.0-52.0); HEMOGLOBIN 11.8 g/dl (14.0-17.9); LYMPHOCYTES % (AUTO) 14.7 % (21-51); MEAN CORPUSCULAR HEMOGLOBIN 28.8 PG (27.0-31.0); MEAN CORPUSCULAR HGB CONC 32.1 % (33.0-36.5); MEAN CORPUSCULAR VOLUME 89.7 FL (78-98); MEAN PLATELET VOLUME 9.5 FL (7.4-10.4); MONOCYTES # (AUTO) 0.6 X10'3 (0-0.9); MONOCYTES % (AUTO) 8.8 % (2-12); NEUTROPHILS # (AUTO) 5.3 X10'3 (1.8-7.7); NEUTROPHILS % (AUTO) 74.7 % (42-75); PLATELET COUNT 127 X10'3 (140-440); RED CELL DISTRIBUTION WIDTH 18.8 % (11.5-14.5)
[2018-05-27 06:02] LABS: ALBUMIN 2.4 G/DL (3.4-5.0); ANION GAP 7 (8-16); BLOOD UREA NITROGEN 18 MG/DL (7-18); BUN/CREATININE RATIO 15.9 (5.4-32.0); CALCIUM 8.2 MG/DL (8.5-10.1); CHLORIDE 102 MMOL/L (99-107); CREATININE 1.13 MG/DL (0.60-1.10); GLUCOSE 99 MG/DL (70-104); POTASSIUM 3.5 MMOL/L (3.5-5.1); SODIUM 137 MMOL/L (135-145); TOTAL CARBON DIOXIDE 27.9 MMOL/L (24-32); eGFR 63 ML/MIN
[2018-05-27] MEDS: oxybutynin 5mg tablet PO SCH ×2 (07:50→20:38)
[2018-05-27] MEDS: aspirin 81mg tab.chew PO SCH (07:50)
[2018-05-27] MEDS: carVEDilol 3.125mg tablet PO SCH ×2 (07:50→20:38)
[2018-05-27] MEDS: furosemide 40mg tablet PO SCH ×2 (07:51→08:28)
[2018-05-27] MEDS: atorvastatin 20mg tablet PO SCH (07:51)
[2018-05-27] MEDS: sulfamethoxazole/trimethoprim DS (800/160mg) tablet PO SCH ×2 (07:52→20:38)
[2018-05-27] MEDS: lisinopril 2.5mg tablet PO SCH (07:53)
[2018-05-27] MEDS ORDERED: non-formulary drug (Atorvastatin Calcium* (Lipitor*) 1 TAB) PO SCH (08:00)
[2018-05-27] MEDS: enoxaparin 100mg/ml syringe SUBCUT SCH ×2 (11:44→22:47)
[2018-05-27] MEDS: lactobacillus rhamnosus 10,000 MMU CELLS/CAPSULE PO SCH (20:38)
[2018-05-27] MEDS: tamsulosin 0.4mg capsule PO SCH (20:38)
[2018-05-27] MEDS: temazepam 15mg capsule PO PRN (20:40)
[2018-05-27] MEDS ORDERED: potassium Cl 20 mEq SR tablet PO PRN ×2 (21:50)
[2018-05-27] MEDS ORDERED: potassium Cl 40MEQ/NS 500ml 500 ML IV PRN ×2 (21:50)
[2018-05-27] MEDS ORDERED: magnesium 4gm in 100ml NS 100 ML IV PRN (21:50)
[2018-05-27] MEDS ORDERED: magnesium Cl slow-release 64mg tablet PO PRN (21:50)
[2018-05-28] VITALS (7 sets, daily range): BP systolic 86–111; BP diastolic 50–66
[2018-05-28 05:07] LABS: BASOPHILS # (AUTO) 0.1 X10'3 (0-0.2); BASOPHILS % (AUTO) 0.7 % (0-1); EOSINOPHILS # (AUTO) 0.1 X10'3 (0-0.9); EOSINOPHILS % (AUTO) 1.8 % (0-6); HEMATOCRIT 37.6 % (42.0-52.0); LYMPHOCYTES # (AUTO) 1.1 X10'3 (1.1-4.8); LYMPHOCYTES % (AUTO) 15.4 % (21-51); MEAN CORPUSCULAR HEMOGLOBIN 28.5 PG (27.0-31.0); MEAN CORPUSCULAR HGB CONC 31.8 % (33.0-36.5); MEAN CORPUSCULAR VOLUME 89.6 FL (78-98); MEAN PLATELET VOLUME 9.2 FL (7.4-10.4); MONOCYTES # (AUTO) 0.5 X10'3 (0-0.9); MONOCYTES % (AUTO) 6.7 % (2-12); NEUTROPHILS # (AUTO) 5.3 X10'3 (1.8-7.7); NEUTROPHILS % (AUTO) 75.4 % (42-75); PLATELET COUNT 126 X10'3 (140-440); RED CELL DISTRIBUTION WIDTH 18.7 % (11.5-14.5)
[2018-05-28 05:09] LABS: ALBUMIN 2.5 G/DL (3.4-5.0); ANION GAP 5 (8-16); BLOOD UREA NITROGEN 15 MG/DL (7-18); BUN/CREATININE RATIO 13.3 (5.4-32.0); CALCIUM 8.3 MG/DL (8.5-10.1); CHLORIDE 101 MMOL/L (99-107); CREATININE 1.13 MG/DL (0.60-1.10); GLUCOSE 97 MG/DL (70-104); MAGNESIUM 1.8 MG/DL (1.5-2.4); POTASSIUM 3.7 MMOL/L (3.5-5.1); SODIUM 136 MMOL/L (135-145); TOTAL CARBON DIOXIDE 29.7 MMOL/L (24-32); eGFR 63 ML/MIN
[2018-05-28] MEDS: carVEDilol 3.125mg tablet PO SCH ×3 (08:00→20:38)
[2018-05-28] MEDS: lisinopril 2.5mg tablet PO SCH (08:00)
[2018-05-28] MEDS: oxybutynin 5mg tablet PO SCH ×2 (08:26→20:38)
[2018-05-28] MEDS: aspirin 81mg tab.chew PO SCH (08:27)
[2018-05-28] MEDS: furosemide 40mg tablet PO SCH (08:28)
[2018-05-28] MEDS: atorvastatin 20mg tablet PO SCH (08:28)
[2018-05-28] MEDS: lactobacillus rhamnosus 10,000 MMU CELLS/CAPSULE PO SCH ×2 (08:28→20:37)
[2018-05-28] MEDS: sulfamethoxazole/trimethoprim DS (800/160mg) tablet PO SCH ×2 (08:29→20:37)
[2018-05-28] MEDS: enoxaparin 100mg/ml syringe SUBCUT SCH ×2 (10:16→21:25)
[2018-05-28] MEDS: ondansetron/PF 4mg/2ml inj IV PRN (15:44)
[2018-05-28] MEDS: tamsulosin 0.4mg capsule PO SCH (20:37)
[2018-05-28] MEDS: temazepam 15mg capsule PO PRN (20:38)
[2018-05-28] MEDS: amiodarone 200mg tablet PO SCH (20:38)
[2018-05-29 03:00] VITALS: BP 89/56
[2018-05-29 04:53] LABS: BASOPHILS % (AUTO) 0.7 % (0-1); EOSINOPHILS # (AUTO) 0.1 X10'3 (0-0.9); EOSINOPHILS % (AUTO) 1.9 % (0-6); HEMATOCRIT 37.3 % (42.0-52.0); HEMOGLOBIN 11.8 g/dl (14.0-17.9); LYMPHOCYTES # (AUTO) 0.9 X10'3 (1.1-4.8); LYMPHOCYTES % (AUTO) 12.8 % (21-51); MEAN CORPUSCULAR HEMOGLOBIN 28.2 PG (27.0-31.0); MEAN CORPUSCULAR HGB CONC 31.6 % (33.0-36.5); MEAN CORPUSCULAR VOLUME 89.4 FL (78-98); MEAN PLATELET VOLUME 9.1 FL (7.4-10.4); MONOCYTES # (AUTO) 0.4 X10'3 (0-0.9); MONOCYTES % (AUTO) 6.1 % (2-12); NEUTROPHILS # (AUTO) 5.8 X10'3 (1.8-7.7); NEUTROPHILS % (AUTO) 78.5 % (42-75); PLATELET COUNT 129 X10'3 (140-440); RED BLOOD COUNT 4.17 X10'6 (4.70-6.10); RED CELL DISTRIBUTION WIDTH 18.9 % (11.5-14.5); WHITE BLOOD COUNT 7.3 X10'3 (4.5-11.0)
[2018-05-29 05:11] LABS: ALBUMIN 2.4 G/DL (3.4-5.0); ANION GAP 7 (8-16); BLOOD UREA NITROGEN 15 MG/DL (7-18); BUN/CREATININE RATIO 13.4 (5.4-32.0); CALCIUM 8.5 MG/DL (8.5-10.1); CHLORIDE 102 MMOL/L (99-107); CREATININE 1.12 MG/DL (0.60-1.10); GLUCOSE 105 MG/DL (70-104); MAGNESIUM 1.8 MG/DL (1.5-2.4); POTASSIUM 3.7 MMOL/L (3.5-5.1); SODIUM 137 MMOL/L (135-145); TOTAL CARBON DIOXIDE 27.9 MMOL/L (24-32); eGFR 64 ML/MIN
[2018-05-29 06:00] VITALS: BP_SYST 128; BP_SYST 84; BP_DIAS 59; BP_DIAS 85
[2018-05-29] MEDS: lisinopril 2.5mg tablet PO SCH (07:44)
[2018-05-29] MEDS: amiodarone 200mg tablet PO SCH ×2 (07:44→20:13)
[2018-05-29] MEDS: atorvastatin 20mg tablet PO SCH (07:45)
[2018-05-29] MEDS: lactobacillus rhamnosus 10,000 MMU CELLS/CAPSULE PO SCH ×2 (07:45→20:13)
[2018-05-29] MEDS: sulfamethoxazole/trimethoprim DS (800/160mg) tablet PO SCH ×2 (07:46→20:13)
[2018-05-29] MEDS: furosemide 40mg tablet PO SCH (07:47)
[2018-05-29] MEDS: oxybutynin 5mg tablet PO SCH ×2 (07:47→20:13)
[2018-05-29] MEDS: aspirin 81mg tab.chew PO SCH (07:48)
[2018-05-29] MEDS: carVEDilol 3.125mg tablet PO SCH ×2 (07:54→19:57)
[2018-05-29] MEDS: enoxaparin 100mg/ml syringe SUBCUT SCH ×2 (10:00→20:13)
[2018-05-29 11:00] VITALS: BP 78/59
[2018-05-29] MEDS: oxymetazoline 15 ML nasal spray NS SCH ×2 (14:02→20:12)
[2018-05-29] MEDS ORDERED: LIDOcaine Viscous 15ml cup MM PRN (14:20)
[2018-05-29 15:00] VITALS: BP 103/52
[2018-05-29 19:00] VITALS: BP 84/48
[2018-05-29] MEDS: tamsulosin 0.4mg capsule PO SCH (20:13)
[2018-05-29 23:00] VITALS: BP 90/61
[2018-05-29] MEDS: temazepam 15mg capsule PO PRN (23:30)
[2018-05-30 03:00] VITALS: BP 83/54
[2018-05-30 05:25] LABS: BASOPHILS % (AUTO) 0.3 % (0-1); EOSINOPHILS # (AUTO) 0.1 X10'3 (0-0.9); EOSINOPHILS % (AUTO) 1.7 % (0-6); HEMATOCRIT 35.3 % (42.0-52.0); HEMOGLOBIN 11.3 g/dl (14.0-17.9); LYMPHOCYTES # (AUTO) 0.8 X10'3 (1.1-4.8); LYMPHOCYTES % (AUTO) 10.5 % (21-51); MEAN CORPUSCULAR HEMOGLOBIN 28.4 PG (27.0-31.0); MEAN CORPUSCULAR HGB CONC 32.1 % (33.0-36.5); MEAN CORPUSCULAR VOLUME 88.4 FL (78-98); MEAN PLATELET VOLUME 9.1 FL (7.4-10.4); MONOCYTES # (AUTO) 0.6 X10'3 (0-0.9); MONOCYTES % (AUTO) 8.2 % (2-12); NEUTROPHILS # (AUTO) 5.8 X10'3 (1.8-7.7); NEUTROPHILS % (AUTO) 79.3 % (42-75); PLATELET COUNT 133 X10'3 (140-440); RED BLOOD COUNT 3.99 X10'6 (4.70-6.10); RED CELL DISTRIBUTION WIDTH 18.9 % (11.5-14.5); WHITE BLOOD COUNT 7.4 X10'3 (4.5-11.0)
[2018-05-30 05:35] LABS: ALBUMIN 2.4 G/DL (3.4-5.0); ANION GAP 7 (8-16); BLOOD UREA NITROGEN 12 MG/DL (7-18); BUN/CREATININE RATIO 10.8 (5.4-32.0); CALCIUM 8.3 MG/DL (8.5-10.1); CHLORIDE 100 MMOL/L (99-107); CREATININE 1.11 MG/DL (0.60-1.10); GLUCOSE 101 MG/DL (70-104); MAGNESIUM 1.6 MG/DL (1.5-2.4); POTASSIUM 3.8 MMOL/L (3.5-5.1); SODIUM 135 MMOL/L (135-145); TOTAL CARBON DIOXIDE 27.7 MMOL/L (24-32); eGFR 65 ML/MIN
[2018-05-30 06:00] VITALS: BP_SYST 124; BP_SYST 87; BP_DIAS 49; BP_DIAS 64
[2018-05-30] MEDS: oxymetazoline 15 ML nasal spray NS SCH ×2 (07:17→20:12)
[2018-05-30] MEDS: aspirin 81mg tab.chew PO SCH (07:18)
[2018-05-30] MEDS: oxybutynin 5mg tablet PO SCH ×2 (07:18→20:05)
[2018-05-30] MEDS: lactobacillus rhamnosus 10,000 MMU CELLS/CAPSULE PO SCH ×2 (07:18→20:05)
[2018-05-30] MEDS: amiodarone 200mg tablet PO SCH ×2 (07:18→20:05)
[2018-05-30] MEDS: furosemide 40mg tablet PO SCH (07:19)
[2018-05-30] MEDS: sulfamethoxazole/trimethoprim DS (800/160mg) tablet PO SCH ×2 (07:19→20:05)
[2018-05-30] MEDS: atorvastatin 20mg tablet PO SCH (07:19)
[2018-05-30] MEDS: lisinopril 2.5mg tablet PO SCH (07:30)
[2018-05-30] MEDS: carVEDilol 3.125mg tablet PO SCH ×2 (07:30→19:58)
[2018-05-30] MEDS: enoxaparin 100mg/ml syringe SUBCUT SCH ×2 (10:26→20:00)
[2018-05-30 11:58] VITALS: BP 96/64
[2018-05-30] MEDS: ondansetron/PF 4mg/2ml inj IV PRN (12:19)
[2018-05-30 15:00] VITALS: BP 74/56
[2018-05-30 19:00] VITALS: BP 83/56
[2018-05-30] MEDS ORDERED: apixaban 5mg tablet PO SCH (20:00)
[2018-05-30] MEDS: tamsulosin 0.4mg capsule PO SCH (20:08)
[2018-05-30 23:00] VITALS: BP 94/59
[2018-05-31 03:00] VITALS: BP 88/57
[2018-05-31 05:37] LABS: MAGNESIUM 1.6 MG/DL (1.5-2.4)
[2018-05-31 06:00] VITALS: BP 95/65
[2018-05-31] MEDS: amiodarone 200mg tablet PO SCH ×2 (07:40→20:22)
[2018-05-31] MEDS: enoxaparin 100mg/ml syringe SUBCUT SCH ×2 (08:00→20:24)
[2018-05-31] MEDS: oxybutynin 5mg tablet PO SCH ×2 (08:00→20:22)
[2018-05-31] MEDS: oxymetazoline 15 ML nasal spray NS SCH ×2 (08:00→20:00)
[2018-05-31] MEDS: carVEDilol 3.125mg tablet PO SCH ×2 (08:00→20:21)
[2018-05-31] MEDS: aspirin 81mg tab.chew PO SCH (08:00)
[2018-05-31] MEDS: furosemide 40mg tablet PO SCH (08:00)
[2018-05-31] MEDS: lisinopril 2.5mg tablet PO SCH (08:00)
[2018-05-31] MEDS: atorvastatin 20mg tablet PO SCH (08:00)
[2018-05-31] MEDS: lactobacillus rhamnosus 10,000 MMU CELLS/CAPSULE PO SCH ×2 (08:00→20:20)
[2018-05-31] MEDS: sulfamethoxazole/trimethoprim DS (800/160mg) tablet PO SCH ×2 (08:00→20:22)
[2018-05-31 11:00] VITALS: BP 83/50
[2018-05-31] MEDS ORDERED: heparin 1,000 UNITS/NS 500ml 500 ML ICATH ONE (13:50)
[2018-05-31] MEDS ORDERED: fentaNYL/PF 50MCG/1 ML 2ML syringe IV PRN (13:50)
[2018-05-31] MEDS ORDERED: LIDOcaine 1%/PF 5ML 10 MG/ML VIAL SQ ONE (13:50)
[2018-05-31] MEDS ORDERED: midazolam 2 mg/2 ml injection IV PRN (13:50)
[2018-05-31] MEDS ORDERED: LIDOcaine 1%/PF 5ML 10 MG/ML VIAL ONE (14:19)
[2018-05-31] MEDS ORDERED: iohexol 300 MG/1 ML 50ml polymer ONE ×2 (14:20→14:40)
[2018-05-31] MEDS ORDERED: midazolam 2 mg/2 ml injection ONE (14:21)
[2018-05-31] MEDS ORDERED: fentaNYL/PF 50MCG/1 ML 2ML syringe ONE (14:21)
[2018-05-31 15:00] VITALS: BP 99/60
[2018-05-31 18:00] VITALS: BP 91/58
[2018-05-31] MEDS: tamsulosin 0.4mg capsule PO SCH (20:20)
[2018-05-31] MEDS: temazepam 15mg capsule PO PRN (20:20)
[2018-05-31 23:00] VITALS: BP 85/47
[2018-06-01] VITALS (7 sets, daily range): BP systolic 82–100; BP diastolic 51–62
[2018-06-01 05:05] LABS: BASOPHILS # (AUTO) 0.1 X10'3 (0-0.2); EOSINOPHILS # (AUTO) 0.2 X10'3 (0-0.9); EOSINOPHILS % (AUTO) 2.3 % (0-6); HEMATOCRIT 36.1 % (42.0-52.0); HEMOGLOBIN 11.5 g/dl (14.0-17.9); LYMPHOCYTES # (AUTO) 0.9 X10'3 (1.1-4.8); LYMPHOCYTES % (AUTO) 12.7 % (21-51); MEAN CORPUSCULAR HEMOGLOBIN 28.1 PG (27.0-31.0); MEAN CORPUSCULAR VOLUME 87.9 FL (78-98); MEAN PLATELET VOLUME 9.5 FL (7.4-10.4); MONOCYTES # (AUTO) 0.7 X10'3 (0-0.9); MONOCYTES % (AUTO) 9.9 % (2-12); NEUTROPHILS # (AUTO) 5.2 X10'3 (1.8-7.7); NEUTROPHILS % (AUTO) 74.1 % (42-75); PLATELET COUNT 128 X10'3 (140-440); RED CELL DISTRIBUTION WIDTH 18.7 % (11.5-14.5)
[2018-06-01 05:38] LABS: ALANINE AMINOTRANSFERASE 15 U/L (12-78); ALBUMIN 2.5 G/DL (3.4-5.0); ALBUMIN/GLOBULIN RATIO 0.7 (1.1-1.5); ALKALINE PHOSPHATASE 98 IU/L (46-116); ANION GAP 10 (8-16); ASPARTATE AMINO TRANSFERASE 15 U/L (10-37); BILIRUBIN,TOTAL 1.1 MG/DL (0.1-1.0); BLOOD UREA NITROGEN 16 MG/DL (7-18); BUN/CREATININE RATIO 14.2 (5.4-32.0); CALCIUM 8.4 MG/DL (8.5-10.1); CHLORIDE 100 MMOL/L (99-107); CREATININE 1.13 MG/DL (0.60-1.10); GLUCOSE 105 MG/DL (70-104); MAGNESIUM 1.6 MG/DL (1.5-2.4); PHOSPHORUS 3.4 MG/DL (2.3-4.5); POTASSIUM 4.3 MMOL/L (3.5-5.1); SODIUM 133 MMOL/L (135-145); TOTAL CARBON DIOXIDE 22.7 MMOL/L (24-32); TOTAL PROTEIN 6.1 G/DL (6.4-8.2); eGFR 63 ML/MIN
[2018-06-01] MEDS: ondansetron/PF 4mg/2ml inj IV PRN ×2 (06:25→16:15)
[2018-06-01] MEDS: aspirin 81mg tab.chew PO SCH (07:45)
[2018-06-01] MEDS: amiodarone 200mg tablet PO SCH ×2 (07:46→20:06)
[2018-06-01] MEDS: sulfamethoxazole/trimethoprim DS (800/160mg) tablet PO SCH ×2 (07:47→20:08)
[2018-06-01] MEDS: atorvastatin 20mg tablet PO SCH (07:47)
[2018-06-01] MEDS: carVEDilol 3.125mg tablet PO SCH ×2 (07:47→20:07)
[2018-06-01] MEDS: oxybutynin 5mg tablet PO SCH ×2 (07:48→20:07)
[2018-06-01] MEDS: lactobacillus rhamnosus 10,000 MMU CELLS/CAPSULE PO SCH ×2 (07:48→20:07)
[2018-06-01] MEDS: furosemide 40mg tablet PO SCH (07:48)
[2018-06-01] MEDS: enoxaparin 100mg/ml syringe SUBCUT SCH ×2 (07:49→20:06)
[2018-06-01] MEDS: oxymetazoline 15 ML nasal spray NS SCH ×2 (07:49→20:00)
[2018-06-01] MEDS: lisinopril 2.5mg tablet PO SCH (08:00)
[2018-06-01] MEDS: temazepam 15mg capsule PO PRN (20:07)
[2018-06-01] MEDS: tamsulosin 0.4mg capsule PO SCH (20:08)
[2018-06-02 03:00] VITALS: BP 104/72
[2018-06-02] MEDS: ondansetron/PF 4mg/2ml inj IV PRN (05:28)
[2018-06-02 05:34] LABS: ALANINE AMINOTRANSFERASE 17 U/L (12-78); ALBUMIN 2.6 G/DL (3.4-5.0); ALBUMIN/GLOBULIN RATIO 0.7 (1.1-1.5); ALKALINE PHOSPHATASE 92 IU/L (46-116); ANION GAP 6 (8-16); ASPARTATE AMINO TRANSFERASE 12 U/L (10-37); BILIRUBIN,TOTAL 1.2 MG/DL (0.1-1.0); BLOOD UREA NITROGEN 20 MG/DL (7-18); BUN/CREATININE RATIO 14.3 (5.4-32.0); CALCIUM 8.7 MG/DL (8.5-10.1); CHLORIDE 99 MMOL/L (99-107); GLUCOSE 103 MG/DL (70-104); MAGNESIUM 1.7 MG/DL (1.5-2.4); PHOSPHORUS 3.6 MG/DL (2.3-4.5); POTASSIUM 4.2 MMOL/L (3.5-5.1); SODIUM 135 MMOL/L (135-145); TOTAL CARBON DIOXIDE 29.7 MMOL/L (24-32); TOTAL PROTEIN 6.3 G/DL (6.4-8.2); eGFR 49 ML/MIN
[2018-06-02 05:45] LABS: BASOPHILS % (AUTO) 0.7 % (0-1); EOSINOPHILS # (AUTO) 0.1 X10'3 (0-0.9); EOSINOPHILS % (AUTO) 1.7 % (0-6); HEMATOCRIT 37.5 % (42.0-52.0); HEMOGLOBIN 11.9 g/dl (14.0-17.9); LYMPHOCYTES # (AUTO) 1.1 X10'3 (1.1-4.8); MEAN CORPUSCULAR HEMOGLOBIN 27.9 PG (27.0-31.0); MEAN CORPUSCULAR HGB CONC 31.6 % (33.0-36.5); MEAN CORPUSCULAR VOLUME 88.2 FL (78-98); MEAN PLATELET VOLUME 9.6 FL (7.4-10.4); MONOCYTES # (AUTO) 0.7 X10'3 (0-0.9); MONOCYTES % (AUTO) 10.1 % (2-12); NEUTROPHILS # (AUTO) 4.6 X10'3 (1.8-7.7); NEUTROPHILS % (AUTO) 70.5 % (42-75); PLATELET COUNT 168 X10'3 (140-440); RED BLOOD COUNT 4.26 X10'6 (4.70-6.10); RED CELL DISTRIBUTION WIDTH 19.2 % (11.5-14.5); WHITE BLOOD COUNT 6.6 X10'3 (4.5-11.0)
[2018-06-02 07:26] VITALS: BP 104/51
[2018-06-02] MEDS: carVEDilol 3.125mg tablet PO SCH (07:34)
[2018-06-02] MEDS: furosemide 40mg tablet PO SCH (07:35)
[2018-06-02] MEDS: lisinopril 2.5mg tablet PO SCH (07:35)
[2018-06-02] MEDS: oxymetazoline 15 ML nasal spray NS SCH (07:42)
[2018-06-02] MEDS: atorvastatin 20mg tablet PO SCH (07:42)
[2018-06-02] MEDS: enoxaparin 100mg/ml syringe SUBCUT SCH (07:42)
[2018-06-02] MEDS: aspirin 81mg tab.chew PO SCH (07:42)
[2018-06-02] MEDS: amiodarone 200mg tablet PO SCH (07:42)
[2018-06-02] MEDS: sulfamethoxazole/trimethoprim DS (800/160mg) tablet PO SCH (07:42)
[2018-06-02] MEDS: lactobacillus rhamnosus 10,000 MMU CELLS/CAPSULE PO SCH (07:42)
[2018-06-02] MEDS: oxybutynin 5mg tablet PO SCH (07:42)
[2018-06-02 12:21] VITALS: BP 98/70
[2018-06-02] MEDS ORDERED: ENOX100D5 SUBCUT (12:39)
[2018-06-02] MEDS ORDERED: AMIO200T40 PO (12:39)
== END 2018-06-02 15:20 | disposition home or self-care (01) | DRG 673 ==
LOC: ER 12:25 → ED HOLD 15:20 → PCU 3S 16:42
PROVIDERS: ADMIT Internal Medicine; ATTEND Internal Medicine
PROC: B32T1ZZ Computerized Tomography (CT Scan) of Left Pulmonary Artery using Low Osmolar Contrast (ICD-10-PCS; 2018-05-25)
PROC: B3201ZZ Computerized Tomography (CT Scan) of Thoracic Aorta using Low Osmolar Contrast (ICD-10-PCS; 2018-05-25)
PROC: B32S1ZZ Computerized Tomography (CT Scan) of Right Pulmonary Artery using Low Osmolar Contrast (ICD-10-PCS; 2018-05-25)
PROC: 06H03DZ Insertion of Intraluminal Device into Inferior Vena Cava, Percutaneous Approach (ICD-10-PCS; principal; 2018-05-31)
DX: N17.9 Acute kidney failure, unspecified (principal); I26.99 Other pulmonary embolism without acute cor pulmonale; J96.01 Acute respiratory failure with hypoxia; I50.23 Acute on chronic systolic (congestive) heart failure; N39.0 Urinary tract infection, site not specified; E87.2 Acidosis; E44.0 Moderate protein-calorie malnutrition; I42.9 Cardiomyopathy, unspecified; I27.82 Chronic pulmonary embolism; Z68.32 Body mass index [BMI] 32.0-32.9, adult; B95.62 Methicillin resistant Staphylococcus aureus infection as the cause of diseases classified elsewhere; D64.9 Anemia, unspecified; E78.00 Pure hypercholesterolemia, unspecified; I11.0 Hypertensive heart disease with heart failure; R33.9 Retention of urine, unspecified; I95.9 Hypotension, unspecified; I25.10 Atherosclerotic heart disease of native coronary artery without angina pectoris; I51.3 Intracardiac thrombosis, not elsewhere classified; R31.9 Hematuria, unspecified; R55 Syncope and collapse; I48.0 Paroxysmal atrial fibrillation; N40.1 Benign prostatic hyperplasia with lower urinary tract symptoms; R04.0 Epistaxis; Z91.19 Patient's noncompliance with other medical treatment and regimen; Z95.1 Presence of aortocoronary bypass graft; I25.2 Old myocardial infarction; Z95.0 Presence of cardiac pacemaker; Z79.899 Other long term (current) drug therapy; Z79.01 Long term (current) use of anticoagulants; Z86.718 Personal history of other venous thrombosis and embolism
CPT/HCPCS: 36415; 37191; 70450; 71045; 71275; 76937; 80048; 80053; 80305; 80320; 81001; 82948; 83605; 83735; 84100; 84132; 84484; 85025; 85379; 85610; 85730; 86885; 86900; 86901; 87040; 87070; 87088; 93005; 97116; 97161; 99152; 99153; 99285; A6219; C1769; C1880; C1894; G0378; J1644; J1650; J2001; J2250; J2405; J3010; Q9967

== ENCOUNTER 2018-06-02 20:09 | Observation (INO) | payer MEDICARE, MEDICAID ==
[~2018-06-02] VITALS: Ht 180.3 cm; Wt 73.2 kg
[~2018-06-02 20:09] MED LIST changes: +AMIO200T40 PO; +ASPI-1265 PO; +CARV3.12 PO; -CARV6.253 PO; +ENOX100D5 SUBCUT; +FLO0.4C PO; +FURO-149 PO; -FURO40TA4 PO; -TAMS0.4C32 PO
[2018-06-02] MEDS ORDERED: HYDROcodone/acetaminophen 5mg/325mg tablet PO STA (22:20)
[2018-06-03] MEDS ORDERED: HYDROcodone/acetaminophen 5mg/325mg tablet PO ONE (00:10)
[2018-06-03] MEDS ORDERED: acetaminophen 325mg tablet PO PRN (16:55)
[2018-06-03] MEDS ORDERED: ipratropium/albuterol 3ml nebule NEB PRN (16:55)
[2018-06-03] MEDS ORDERED: mag hydrox/Alum hydrox/simeth 30ml oral suspension PO PRN (16:55)
[2018-06-03] MEDS ORDERED: ondansetron/PF 4mg/2ml inj IV PRN (16:55)
[2018-06-03] MEDS: aspirin 81mg tab.chew PO SCH (18:07)
[2018-06-03] MEDS: enoxaparin 100mg/ml syringe SUBCUT SCH (20:00)
[2018-06-03] MEDS: carVEDilol 3.125mg tablet PO SCH (20:15)
[2018-06-03] MEDS: amiodarone 200mg tablet PO SCH (20:15)
[2018-06-03] MEDS: oxybutynin 5mg tablet PO SCH (20:15)
[2018-06-03] MEDS: sulfamethoxazole/trimethoprim DS (800/160mg) tablet PO SCH (20:15)
[2018-06-03] MEDS ORDERED: tamsulosin 0.4mg capsule PO SCH (21:00)
[2018-06-03] MEDS: HYDROcodone/acetaminophen 5mg/325mg tablet PO PRN (21:59)
[2018-06-03 23:00] VITALS: BP 90/54
[2018-06-04 03:00] VITALS: BP 88/48
[2018-06-04 06:00] VITALS: BP 93/49
[2018-06-04] MEDS: carVEDilol 3.125mg tablet PO SCH (08:00)
[2018-06-04] MEDS ORDERED: furosemide 40mg tablet PO SCH (08:00)
[2018-06-04] MEDS ORDERED: atorvastatin 20mg tablet PO SCH (08:00)
[2018-06-04] MEDS: aspirin 81mg tab.chew PO SCH (10:17)
[2018-06-04] MEDS: amiodarone 200mg tablet PO SCH (10:18)
[2018-06-04] MEDS: HYDROcodone/acetaminophen 5mg/325mg tablet PO PRN (10:18)
[2018-06-04] MEDS: oxybutynin 5mg tablet PO SCH (10:19)
[2018-06-04] MEDS: sulfamethoxazole/trimethoprim DS (800/160mg) tablet PO SCH (10:19)
[2018-06-04 11:00] VITALS: BP 90/51
[2018-06-04 11:02] LABS: BASOPHILS % (AUTO) 0.2 % (0-1); EOSINOPHILS # (AUTO) 0.1 X10'3 (0-0.9); EOSINOPHILS % (AUTO) 1.1 % (0-6); HEMATOCRIT 39.9 % (42.0-52.0); HEMOGLOBIN 12.8 g/dl (14.0-17.9); LYMPHOCYTES # (AUTO) 0.7 X10'3 (1.1-4.8); LYMPHOCYTES % (AUTO) 9.7 % (21-51); MEAN CORPUSCULAR HEMOGLOBIN 28.4 PG (27.0-31.0); MEAN CORPUSCULAR VOLUME 88.8 FL (78-98); MEAN PLATELET VOLUME 9.1 FL (7.4-10.4); MONOCYTES # (AUTO) 0.5 X10'3 (0-0.9); MONOCYTES % (AUTO) 6.5 % (2-12); NEUTROPHILS # (AUTO) 5.9 X10'3 (1.8-7.7); NEUTROPHILS % (AUTO) 82.5 % (42-75); PLATELET COUNT 185 X10'3 (140-440); RED CELL DISTRIBUTION WIDTH 19.7 % (11.5-14.5); WHITE BLOOD COUNT 7.1 X10'3 (4.5-11.0)
[2018-06-04] MEDS: enoxaparin 100mg/ml syringe SUBCUT SCH (14:20)
== END 2018-06-04 15:52 ==
LOC: ER 20:10 → ED HOLD 06-03 16:55 → EDBEDREQ 06-03 19:53 → PCU 3S 06-03 20:41
PROVIDERS: ADMIT Family Medicine; ATTEND Family Medicine
DX: I26.09 Other pulmonary embolism with acute cor pulmonale (principal); I27.82 Chronic pulmonary embolism; I11.0 Hypertensive heart disease with heart failure; I50.23 Acute on chronic systolic (congestive) heart failure; I51.3 Intracardiac thrombosis, not elsewhere classified; B95.62 Methicillin resistant Staphylococcus aureus infection as the cause of diseases classified elsewhere; N39.0 Urinary tract infection, site not specified; E78.00 Pure hypercholesterolemia, unspecified; I25.10 Atherosclerotic heart disease of native coronary artery without angina pectoris; I25.2 Old myocardial infarction; I42.9 Cardiomyopathy, unspecified; I48.0 Paroxysmal atrial fibrillation; N40.0 Benign prostatic hyperplasia without lower urinary tract symptoms; R29.6 Repeated falls; Z79.01 Long term (current) use of anticoagulants; Z95.1 Presence of aortocoronary bypass graft; Z96.642 Presence of left artificial hip joint; Z78.9 Other specified health status; W18.30XA Fall on same level, unspecified, initial encounter; Y93.89 Activity, other specified; Y92.89 Other specified places as the place of occurrence of the external cause; Y99.8 Other external cause status
CPT/HCPCS: 36415; 85025; 87070; 96372; 96374; 99284; G0378; J2405; J1650